=== PATIENT | female | born 1935 | race Caucasian/White ===

== ENCOUNTER → 2016-07-26 | Outpatient (CLI) | payer MEDICARE, OTHER ==
[~2016-07-26] MED LIST: ALBU8.5H3 INH; ASPI-496 PO; HYDR-3138 PO; LOSA50TA6 PO; METO-93 PO; ROSU5TAB PO
== END | disposition home or self-care (01) ==
LOC: CFH 07:44
PROVIDERS: ATTEND Internal Medicine
DX: Z13.820 Encounter for screening for osteoporosis (principal); M81.0 Age-related osteoporosis without current pathological fracture; N95.1 Menopausal and female climacteric states; M89.8X0 Other specified disorders of bone, multiple sites
CPT/HCPCS: 77080

== ENCOUNTER → 2017-01-15 | Outpatient (CLI) | payer MEDICARE, OTHER ==
[~2017-01-15] MED LIST changes: -ALBU8.5H3 INH; +ALBU8.5H8 INH; -HYDR-3138 PO; +HYDR-3237 PO
== END | disposition home or self-care (01) ==
LOC: CFH 06:43
PROVIDERS: ATTEND Internal Medicine Cardiovascular Disease
DX: I08.3 Combined rheumatic disorders of mitral, aortic and tricuspid valves (principal); I10 Essential (primary) hypertension; E78.5 Hyperlipidemia, unspecified
CPT/HCPCS: 93306

== ENCOUNTER → 2017-01-16 | Outpatient (CLI) | payer MEDICARE, OTHER ==
[2017-01-16 12:55] LABS: BLOOD UREA NITROGEN 24 mg/dL (7-18)
[2017-01-16 12:59] LABS: ASPARTATE AMINO TRANSFERASE 22 U/L (15-37)
== END | disposition home or self-care (01) ==
LOC: CFH 07:02
PROVIDERS: ATTEND Internal Medicine Cardiovascular Disease
DX: I10 Essential (primary) hypertension (principal); E78.00 Pure hypercholesterolemia, unspecified
CPT/HCPCS: 36415; 80053; 80061

== ENCOUNTER 2017-11-02 19:36 | Emergency (ER) | payer MEDICARE, OTHER ==
[~2017-11-02] VITALS: Ht 162.6 cm; Wt 81.8 kg
[~2017-11-02 19:36] MED LIST changes: +MULTIVITAMIN; +OMEG-14 PO; +OMEP-110 PO; +VITAMIN D; +[UNRECOGNIZED DRUG - OTHER]
[2017-11-02] MEDS ORDERED: ONDANSETRON ODT 4 MG PO ONE (20:00)
[2017-11-02] MEDS ORDERED: ONDANSETRON ODT 4 MG ONE (20:03)
[2017-11-02] MEDS ORDERED: MECLIZINE CHEWABLE 25 MG TAB ONE (20:58)
[2017-11-02] MEDS ORDERED: MECLIZINE CHEWABLE 25 MG TAB PO ONE (21:00)
[2017-11-02 21:30] VITALS: BP 157/68
== END 2017-11-02 21:32 | disposition home or self-care (01) ==
LOC: ED 21:26
DX: S06.310A Contusion and laceration of right cerebrum without loss of consciousness, initial encounter (principal); R11.0 Nausea; I48.91 Unspecified atrial fibrillation; I11.0 Hypertensive heart disease with heart failure; I50.9 Heart failure, unspecified; W01.0XXA Fall on same level from slipping, tripping and stumbling without subsequent striking against object, initial encounter; Y93.89 Activity, other specified; Y99.8 Other external cause status; Y92.009 Unspecified place in unspecified non-institutional (private) residence as the place of occurrence of the external cause
CPT/HCPCS: 70450; 72125; 93005; 99284; Q0162

== ENCOUNTER → 2017-11-28 | Outpatient (CLI) | payer MEDICARE, OTHER | END | disposition home or self-care (01) | LOC: CVU 12:37 → EDSTATUS 13:00 | PROVIDERS: ATTEND Internal Medicine Cardiovascular Disease | DX: I08.1 Rheumatic disorders of both mitral and tricuspid valves (principal); Z95.2 Presence of prosthetic heart valve; I11.9 Hypertensive heart disease without heart failure; I87.2 Venous insufficiency (chronic) (peripheral); I71.2 Thoracic aortic aneurysm, without rupture | CPT/HCPCS: 93306 ==

== ENCOUNTER 2018-03-16 13:39 | Day surgery (SDC) | payer MEDICARE, OTHER ==
[~2018-03-16] VITALS: Ht 162.6 cm; Wt 88.6 kg
[~2018-03-16 13:39] MED LIST changes: -LOSA50TA6 PO; +LOSA50TA7 PO
[2018-03-16 14:12] VITALS: BP 189/91
[2018-03-16] MEDS ORDERED: LIDOCAINE-MPF 1%, 5ML ONE (15:08)
== END 2018-03-16 16:22 | disposition home or self-care (01) ==
LOC: CACL 13:39
PROVIDERS: ATTEND Internal Medicine Cardiovascular Disease
DX: I83.12 Varicose veins of left lower extremity with inflammation (principal); I11.0 Hypertensive heart disease with heart failure; I50.9 Heart failure, unspecified; J44.9 Chronic obstructive pulmonary disease, unspecified; I48.0 Paroxysmal atrial fibrillation; E78.2 Mixed hyperlipidemia; G43.909 Migraine, unspecified, not intractable, without status migrainosus; Z79.82 Long term (current) use of aspirin; Z79.899 Other long term (current) drug therapy; Z88.1 Allergy status to other antibiotic agents; Z88.8 Allergy status to other drugs, medicaments and biological substances; Z98.890 Other specified postprocedural states
CPT/HCPCS: 36482; C1894

== ENCOUNTER → 2018-03-18 | Outpatient (CLI) | payer MEDICARE, OTHER | END | disposition home or self-care (01) | LOC: CVU 08:00 | PROVIDERS: ATTEND Internal Medicine Cardiovascular Disease | DX: I87.2 Venous insufficiency (chronic) (peripheral) (principal); I50.9 Heart failure, unspecified | CPT/HCPCS: 93971 ==

== ENCOUNTER → 2018-04-02 | Outpatient (CLI) | payer MEDICARE, OTHER ==
[~2018-04-02] MED LIST changes: +FENTANYL PF 100 MCG/2ML ONE; +FLUMAZENIL 0.1 MG/1 ML, 5ML ONE; +GADOBUTROL 10 MMOL/10 ML PFS ONE; +MIDAZOLAM 1 MG/ML, 5ML ONE; +NALOXONE 1 MG/ML, 2ML ONE
== END | disposition home or self-care (01) ==
LOC: RAD 08:20
PROVIDERS: ATTEND Registered Nurse
DX: G43.109 Migraine with aura, not intractable, without status migrainosus (principal)
CPT/HCPCS: 70553; 99156; 99157; A9585; J2250; J3010; J2310

== ENCOUNTER → 2018-05-01 | Outpatient (CLI) | payer MEDICARE, OTHER ==
[~2018-05-01] MED LIST changes: -FENTANYL PF 100 MCG/2ML ONE; -FLUMAZENIL 0.1 MG/1 ML, 5ML ONE; -GADOBUTROL 10 MMOL/10 ML PFS ONE; -MIDAZOLAM 1 MG/ML, 5ML ONE; -NALOXONE 1 MG/ML, 2ML ONE
== END | disposition home or self-care (01) ==
LOC: CFH 07:22
PROVIDERS: ATTEND Internal Medicine
DX: I11.0 Hypertensive heart disease with heart failure (principal); I50.9 Heart failure, unspecified; I27.20 Pulmonary hypertension, unspecified; J44.9 Chronic obstructive pulmonary disease, unspecified; R05 Cough; K44.9 Diaphragmatic hernia without obstruction or gangrene; I77.810 Thoracic aortic ectasia; M85.88 Other specified disorders of bone density and structure, other site; M47.894 Other spondylosis, thoracic region
CPT/HCPCS: 71046

== ENCOUNTER 2018-07-16 10:33 | Day surgery (SDC) | payer MEDICARE, OTHER ==
[~2018-07-16 10:33] MED LIST changes: +LOSA50TA14 PO; -LOSA50TA7 PO
[2018-07-16] MEDS ORDERED: LIDOCAINE 2%, 20ML ONE (11:50)
== END 2018-07-16 12:22 | disposition home or self-care (01) ==
LOC: CACL 10:33
PROVIDERS: ATTEND Internal Medicine Cardiovascular Disease
DX: Z45.09 Encounter for adjustment and management of other cardiac device (principal); I48.91 Unspecified atrial fibrillation; I11.0 Hypertensive heart disease with heart failure; I50.30 Unspecified diastolic (congestive) heart failure; E78.00 Pure hypercholesterolemia, unspecified; I35.0 Nonrheumatic aortic (valve) stenosis; J45.909 Unspecified asthma, uncomplicated; Z98.890 Other specified postprocedural states; Z79.82 Long term (current) use of aspirin; Z95.2 Presence of prosthetic heart valve
CPT/HCPCS: 33285; C1764; J3490

== ENCOUNTER 2018-07-18 17:51 | Emergency (ER) | payer MEDICARE, OTHER ==
[~2018-07-18] VITALS: Ht 162.6 cm; Wt 89.5 kg
[2018-07-18 18:47] LABS: BASOPHILS # (AUTO) 0.02 x10^3/uL (0-0.1); BASOPHILS % (AUTO) 0 % (0-1); EOSINOPHILS # (AUTO) 0.29 x10^3/uL (0-0.4); EOSINOPHILS % (AUTO) 4 % (1-7); LYMPHOCYTES # (AUTO) 1.85 x10^3/uL (1-3.4); LYMPHOCYTES % (AUTO) 25 % (22-44); MD NO; MEAN CORPUSCULAR HEMOGLOBIN 31.5 pg (27.0-34.8); MEAN CORPUSCULAR VOLUME 92.7 fL (80-100); MEAN PLATELET VOLUME 8.1 fL (7.4-10.4); MONOCYTES # (AUTO) 0.54 x10^3/uL (0.2-0.8); MONOCYTES % (AUTO) 7 % (2-9); NEUTROPHILS # (AUTO) 4.61 x10^3/uL (1.8-6.8); NEUTROPHILS % (AUTO) 63 % (42-75); PLATELET COUNT 198 x10^3/uL (130-400); RED BLOOD COUNT 4.38 x10^6/uL (3.82-5.3); RED CELL DISTRIBUTION WIDTH 14.8 % (9.6-15.2)
[2018-07-18 18:53] LABS: ALANINE AMINOTRANSFERASE 28 U/L (12-78); ALBUMIN 3.6 g/dL (3.4-5.0); ANION GAP 3 mmol/L (5-15); CALCIUM 8.5 mg/dL (8.5-10.1); CHLORIDE 109 mmol/L (98-107); CREATININE 0.95 mg/dL (0.55-1.02)
[2018-07-18 18:57] LABS: ALKALINE PHOSPHATASE 78 U/L (45-117); BILIRUBIN,TOTAL 0.6 mg/dL (0.2-1.0); TOTAL PROTEIN 6.7 g/dL (6.4-8.2); TROPONIN I < 0.015 ng/mL (0.000-0.045)
[2018-07-18 20:20] VITALS: BP 153/57
== END 2018-07-18 20:22 | disposition home or self-care (01) ==
LOC: ED 20:00
DX: S20.212A Contusion of left front wall of thorax, initial encounter (principal); I48.91 Unspecified atrial fibrillation; I25.10 Atherosclerotic heart disease of native coronary artery without angina pectoris; I38 Endocarditis, valve unspecified; I50.9 Heart failure, unspecified; X58.XXXA Exposure to other specified factors, initial encounter; Y93.89 Activity, other specified; Y92.89 Other specified places as the place of occurrence of the external cause; Y99.8 Other external cause status
CPT/HCPCS: 36415; 71045; 80053; 83880; 84484; 85025; 93005; 99284

== ENCOUNTER → 2018-08-12 | Outpatient (CLI) | payer MEDICARE, OTHER | END | disposition home or self-care (01) | LOC: CFH 08:41 | PROVIDERS: ATTEND Internal Medicine | DX: M85.88 Other specified disorders of bone density and structure, other site (principal) | CPT/HCPCS: 77080 ==

== ENCOUNTER → 2018-09-14 | Outpatient (CLI) | payer MEDICARE, OTHER ==
[2018-09-14 13:33] LABS: BASOPHILS # (AUTO) 0.02 x10^3/uL (0-0.1); BASOPHILS % (AUTO) 0 % (0-1); EOSINOPHILS # (AUTO) 0.32 x10^3/uL (0-0.4); EOSINOPHILS % (AUTO) 4 % (1-7); LYMPHOCYTES # (AUTO) 1.39 x10^3/uL (1-3.4); LYMPHOCYTES % (AUTO) 19 % (22-44); MD NO; MEAN CORPUSCULAR HEMOGLOBIN 31.5 pg (27.0-34.8); MEAN CORPUSCULAR VOLUME 95.6 fL (80-100); MEAN PLATELET VOLUME 8.8 fL (7.4-10.4); MONOCYTES # (AUTO) 0.52 x10^3/uL (0.2-0.8); MONOCYTES % (AUTO) 7 % (2-9); NEUTROPHILS # (AUTO) 5.23 x10^3/uL (1.8-6.8); NEUTROPHILS % (AUTO) 70 % (42-75); PLATELET COUNT 192 x10^3/uL (130-400); RED CELL DISTRIBUTION WIDTH 13.6 % (9.6-15.2)
[2018-09-14 14:01] LABS: ALBUMIN 4.1 g/dL (3.4-5.0); CALCIUM 10.3 mg/dL (8.5-10.1); CHLORIDE 106 mmol/L (98-107)
[2018-09-14 14:09] LABS: ALANINE AMINOTRANSFERASE 34 U/L (12-78); ALKALINE PHOSPHATASE 76 U/L (45-117); ANION GAP 4 mmol/L (5-15); BILIRUBIN,TOTAL 1.2 mg/dL (0.2-1.0); CHOL/HDL RATIO 2.8; CHOLESTEROL, TOTAL 134 mg/dL (140-239); CREATININE 0.82 mg/dL (0.55-1.02); HDL CHOL % 36 % (28-40); HDL CHOLESTEROL (DIRECT) 48 mg/dL (40-60); LDL CHOLESTEROL,CALCULATED 67 mg/dL (54-169); LDL/HDL RATIO 1.4 (0.5-3.0); TOTAL PROTEIN 7.5 g/dL (6.4-8.2); TRIGLYCERIDES 93 mg/dL (50-200); VLDL CHOLESTEROL 19 mg/dL (0-25)
== END | disposition home or self-care (01) ==
LOC: CFH 07:47
PROVIDERS: ATTEND Internal Medicine Cardiovascular Disease
DX: E78.00 Pure hypercholesterolemia, unspecified (principal); I10 Essential (primary) hypertension; R73.01 Impaired fasting glucose; I27.20 Pulmonary hypertension, unspecified
CPT/HCPCS: 36415; 80053; 80061; 85025

== ENCOUNTER 2018-11-13 07:39 | Outpatient (CLI) | payer MEDICARE, OTHER ==
[2018-11-13 08:55] LABS: BASOPHILS # (AUTO) 0.03 x10^3/uL (0-0.1); BASOPHILS % (AUTO) 1 % (0-1); EOSINOPHILS # (AUTO) 0.31 x10^3/uL (0-0.4); EOSINOPHILS % (AUTO) 5 % (1-7); LYMPHOCYTES # (AUTO) 1.39 x10^3/uL (1-3.4); LYMPHOCYTES % (AUTO) 21 % (22-44); MD NO; MEAN CORPUSCULAR HEMOGLOBIN 30.4 pg (27.0-34.8); MEAN CORPUSCULAR HGB CONC 32.5 g/dL (32.4-35.8); MEAN CORPUSCULAR VOLUME 93.6 fL (80-100); MEAN PLATELET VOLUME 8.3 fL (7.4-10.4); MONOCYTES # (AUTO) 0.54 x10^3/uL (0.2-0.8); MONOCYTES % (AUTO) 8 % (2-9); NEUTROPHILS # (AUTO) 4.23 x10^3/uL (1.8-6.8); NEUTROPHILS % (AUTO) 65 % (42-75); PLATELET COUNT 202 x10^3/uL (130-400); RED BLOOD COUNT 4.82 x10^6/uL (3.82-5.3); RED CELL DISTRIBUTION WIDTH 13.5 % (9.6-15.2)
[2018-11-13 09:04] LABS: ANION GAP 5 mmol/L (5-15); CALCIUM 9.3 mg/dL (8.5-10.1); CHLORIDE 108 mmol/L (98-107)
[2018-11-13 09:08] LABS: ALANINE AMINOTRANSFERASE 28 U/L (12-78); ALKALINE PHOSPHATASE 72 U/L (45-117); BILIRUBIN,TOTAL 0.7 mg/dL (0.2-1.0); CHOLESTEROL, TOTAL 214 mg/dL (140-239); CREATININE 0.96 mg/dL (0.55-1.02); HDL CHOL % 25 % (28-40); HDL CHOLESTEROL (DIRECT) 53 mg/dL (40-60); LDL CHOLESTEROL,CALCULATED 135 mg/dL (54-169); LDL/HDL RATIO 2.5 (0.5-3.0); TOTAL PROTEIN 7.5 g/dL (6.4-8.2); TRIGLYCERIDES 130 mg/dL (50-200); VLDL CHOLESTEROL 26 mg/dL (0-25)
[2018-11-13 09:10] LABS: HEMOGLOBIN A1C 5.7 % (4.2-6.3)
== END 2018-11-13 23:59 | disposition home or self-care (01) ==
LOC: CFH 07:39
PROVIDERS: ATTEND Internal Medicine
DX: I11.0 Hypertensive heart disease with heart failure (principal); E83.52 Hypercalcemia; I48.0 Paroxysmal atrial fibrillation; I50.32 Chronic diastolic (congestive) heart failure; J44.9 Chronic obstructive pulmonary disease, unspecified; R73.01 Impaired fasting glucose
CPT/HCPCS: 36415; 80053; 80061; 82330; 83036; 83970; 85025

== ENCOUNTER 2018-11-23 09:41 | Outpatient (CLI) | payer MEDICARE, OTHER | END 2018-11-23 23:59 | disposition home or self-care (01) | LOC: CFH 09:41 | PROVIDERS: ATTEND Internal Medicine Cardiovascular Disease | DX: I08.1 Rheumatic disorders of both mitral and tricuspid valves (principal); I10 Essential (primary) hypertension; G47.30 Sleep apnea, unspecified | CPT/HCPCS: 93306 ==

== ENCOUNTER → 2019-03-19 | Outpatient (CLI) | payer MEDICARE, OTHER ==
[2019-03-19 13:20] LABS: ALANINE AMINOTRANSFERASE 32 U/L (12-78); ALBUMIN 3.7 g/dL (3.4-5.0); ANION GAP 4 mmol/L (5-15); CALCIUM 9.2 mg/dL (8.5-10.1); CHLORIDE 108 mmol/L (98-107); CREATININE 0.74 mg/dL (0.55-1.02)
[2019-03-19 13:22] LABS: ALKALINE PHOSPHATASE 71 U/L (45-117); BILIRUBIN,TOTAL 0.9 mg/dL (0.2-1.0); TOTAL PROTEIN 7.2 g/dL (6.4-8.2)
== END | disposition home or self-care (01) ==
LOC: CFH 07:34
PROVIDERS: ATTEND Internal Medicine
DX: M81.0 Age-related osteoporosis without current pathological fracture (principal); I50.9 Heart failure, unspecified
CPT/HCPCS: 36415; 80053

== ENCOUNTER 2019-04-28 04:13 | Emergency (ER) | payer MEDICARE, OTHER ==
[~2019-04-28] VITALS: Ht 162.6 cm; Wt 84.7 kg
[2019-04-28 04:16] VITALS: BP 208/95
== END 2019-04-28 05:26 | disposition home or self-care (01) ==
LOC: ED 05:05
DX: K02.9 Dental caries, unspecified (principal); I11.0 Hypertensive heart disease with heart failure; I48.91 Unspecified atrial fibrillation; I25.10 Atherosclerotic heart disease of native coronary artery without angina pectoris
CPT/HCPCS: 93005; 99283

== ENCOUNTER 2019-04-29 05:54 | Emergency (ER) | payer MEDICARE, OTHER ==
[~2019-04-29] VITALS: Ht 162.6 cm; Wt 84.0 kg
--- NOTE | 2019-04-29 06:15 | NUR ---
Pt presents to ed c/o facial swelling and seen here recently. Started abx yesterday morning and swelling getting worse. "i can barely swallow my antibiotics. Able to tolerate own secretions and po intake. Moderate swelling noted to R side of face. Md aware. No acute signs of respiratory distress noted.
--- NOTE | 2019-04-29 06:25 | NUR ---
at bedside for assessment.
[2019-04-29] MEDS ORDERED: SODIUM CHLORIDE FLUSH 10ML SYR IVF ONE (06:30)
[2019-04-29 06:50] LABS: BASOPHILS % (AUTO) 0 % (0-1); EOSINOPHILS # (AUTO) 0.17 x10^3/uL (0-0.4); EOSINOPHILS % (AUTO) 2 % (1-7); LYMPHOCYTES # (AUTO) 0.88 x10^3/uL (1-3.4); LYMPHOCYTES % (AUTO) 8 % (22-44); MD NO; MEAN CORPUSCULAR HEMOGLOBIN 30.6 pg (27.0-34.8); MEAN CORPUSCULAR HGB CONC 33.6 g/dL (32.4-35.8); MEAN CORPUSCULAR VOLUME 91.3 fL (80-100); MEAN PLATELET VOLUME 7.9 fL (7.4-10.4); MONOCYTES # (AUTO) 0.54 x10^3/uL (0.2-0.8); MONOCYTES % (AUTO) 5 % (2-9); NEUTROPHILS % (AUTO) 85 % (42-75); PLATELET COUNT 180 x10^3/uL (130-400); RED BLOOD COUNT 4.95 x10^6/uL (3.82-5.3); RED CELL DISTRIBUTION WIDTH 13.5 % (9.6-15.2)
--- NOTE | 2019-04-29 06:54 | NUR ---
Pt bedside report to Katelynn alexandre.
--- NOTE | 2019-04-29 06:57 | NUR ---
Bedside report from Trevon RN, pt care assumed at this time. Pt in bed, no needs at this time, awaiting lab results & CT scan. WCTM.
[2019-04-29 07:03] LABS: ALBUMIN 3.6 g/dL (3.4-5.0); ANION GAP 6 mmol/L (5-15); CALCIUM 8.7 mg/dL (8.5-10.1); CHLORIDE 106 mmol/L (98-107)
--- NOTE | 2019-04-29 07:37 | NUR ---
Pt returning from CT in NAD
[2019-04-29] MEDS ORDERED: OMNIPAQUE 350 MG/ML, 75ML BOTTLE ONE (07:48)
[2019-04-29] MEDS ORDERED: MORPHINE SULFATE 4 MG/ML, 1ML ONE (07:57)
[2019-04-29] MEDS ORDERED: ONDANSETRON 2MG/ML, 2ML ONE (07:57)
[2019-04-29] MEDS ORDERED: ONDANSETRON 2MG/ML, 2ML IVPush ONE (08:00)
[2019-04-29] MEDS ORDERED: MORPHINE SULFATE 4 MG/ML, 1ML IVPush ONE (08:00)
[2019-04-29] MEDS ORDERED: AMPICILLIN/SULBACTAM 3 GM in SODIUM CHLORIDE 0.9% 100 ML IV ONE (08:00)
[2019-04-29 09:07] VITALS: BP 151/87
== END 2019-04-29 09:19 | disposition home or self-care (01) ==
LOC: ED 09:15
DX: K02.9 Dental caries, unspecified (principal); I50.9 Heart failure, unspecified; I25.10 Atherosclerotic heart disease of native coronary artery without angina pectoris; I48.91 Unspecified atrial fibrillation
CPT/HCPCS: 36415; 70487; 80048; 82040; 85025; 96365; 96375; 99284; J0295; J2270; J2405; Q9967

== ENCOUNTER 2019-05-08 18:45 | Emergency (ER) | payer MEDICARE, OTHER ==
[~2019-05-08] VITALS: Ht 162.6 cm; Wt 85.0 kg
--- NOTE | 2019-05-08 19:12 | NUR ---
THIS IS AN 83Y F THAT COMES IN FOR CHEST TIGHNESS AND SHORTNESS OF BREATH STARTING 1.5HRS AGO. PT WAS SLEEPING AND WAS WOKEN UP BY CHEST PRESSURE. PT CONNECTED TO ALL MONITORING. CALL LIGHT IN REACH
--- NOTE | 2019-05-08 19:12 | NUR ---
PA AT BEDSIDE TO ASSESS PT
[2019-05-08 19:14] VITALS: BP 125/85
[2019-05-08] MEDS ORDERED: ASPIRIN 81 MG TABLET CHEW ONE (19:16)
--- NOTE | 2019-05-08 19:18 | NUR ---
PT MEDICATED PER JUN, XRAY AT BEDSIDE
[2019-05-08 19:27] LABS: BASOPHILS # (AUTO) 0.08 x10^3/uL (0-0.1); BASOPHILS % (AUTO) 1 % (0-1); EOSINOPHILS # (AUTO) 0.26 x10^3/uL (0-0.4); EOSINOPHILS % (AUTO) 3 % (1-7); LYMPHOCYTES # (AUTO) 2.11 x10^3/uL (1-3.4); LYMPHOCYTES % (AUTO) 27 % (22-44); MD NO; MEAN CORPUSCULAR HEMOGLOBIN 30.6 pg (27.0-34.8); MEAN CORPUSCULAR HGB CONC 33.6 g/dL (32.4-35.8); MEAN PLATELET VOLUME 8.1 fL (7.4-10.4); MONOCYTES % (AUTO) 9 % (2-9); NEUTROPHILS # (AUTO) 4.66 x10^3/uL (1.8-6.8); NEUTROPHILS % (AUTO) 60 % (42-75); PLATELET COUNT 280 x10^3/uL (130-400); RED BLOOD COUNT 4.64 x10^6/uL (3.82-5.3); RED CELL DISTRIBUTION WIDTH 13.3 % (9.6-15.2)
[2019-05-08] MEDS ORDERED: ASPIRIN 81 MG TABLET CHEW PO ONE (19:30)
[2019-05-08] MEDS ORDERED: SODIUM CHLORIDE FLUSH 10ML SYR IVF ONE (19:30)
[2019-05-08 19:37] LABS: ALANINE AMINOTRANSFERASE 28 U/L (12-78); ALBUMIN 3.5 g/dL (3.4-5.0); ANION GAP 11 mmol/L (5-15); CALCIUM 9.3 mg/dL (8.5-10.1); CHLORIDE 110 mmol/L (98-107); CREATININE 0.84 mg/dL (0.55-1.02)
[2019-05-08] MEDS ORDERED: DILTIAZEM 5 MG/ML, 5ML ONE (19:38)
[2019-05-08 19:42] LABS: ALKALINE PHOSPHATASE 84 U/L (45-117); BILIRUBIN,TOTAL 0.6 mg/dL (0.2-1.0); TROPONIN I < 0.015 ng/mL (0.000-0.045)
--- NOTE | 2019-05-08 19:45 | NUR ---
HR UP TO 140, UPDATED ADDITIONAL ORDER RECIEVED. PT MEDICATED PER MAR. HR DOWN TO 98.
[2019-05-08] MEDS ORDERED: ETOMIDATE 20 MG/10 ML ONE (19:51)
--- NOTE | 2019-05-08 19:58 | NUR ---
AT BEDSIDE FOR CARDIOVERSION
[2019-05-08] MEDS ORDERED: DILTIAZEM 5 MG/ML, 5ML IVPush ONE (20:00)
== END 2019-05-08 21:19 | disposition home or self-care (01) ==
LOC: ED 20:28
DX: I48.91 Unspecified atrial fibrillation (principal); I25.10 Atherosclerotic heart disease of native coronary artery without angina pectoris; I11.0 Hypertensive heart disease with heart failure; I50.9 Heart failure, unspecified; I25.2 Old myocardial infarction
CPT/HCPCS: 36415; 71045; 80053; 83735; 83880; 84484; 85025; 93005; 96374; 99284

== ENCOUNTER → 2019-10-15 | Outpatient (CLI) | payer MEDICARE, OTHER ==
[2019-10-15 13:15] LABS: BASOPHILS # (AUTO) 0.03 x10^3/uL (0-0.1); BASOPHILS % (AUTO) 1 % (0-1); EOSINOPHILS % (AUTO) 4 % (1-7); LYMPHOCYTES # (AUTO) 1.43 x10^3/uL (1-3.4); LYMPHOCYTES % (AUTO) 27 % (22-44); MD NO; MEAN CORPUSCULAR HEMOGLOBIN 30.7 pg (27.0-34.8); MEAN CORPUSCULAR HGB CONC 33.1 g/dL (32.4-35.8); MEAN CORPUSCULAR VOLUME 92.9 fL (80-100); MONOCYTES # (AUTO) 0.52 x10^3/uL (0.2-0.8); MONOCYTES % (AUTO) 10 % (2-9); NEUTROPHILS # (AUTO) 3.17 x10^3/uL (1.8-6.8); NEUTROPHILS % (AUTO) 59 % (42-75); PLATELET COUNT 159 x10^3/uL (130-400); RED CELL DISTRIBUTION WIDTH 13.9 % (9.6-15.2)
[2019-10-15 13:39] LABS: CHLORIDE 109 mmol/L (98-107)
[2019-10-15 13:45] LABS: ALANINE AMINOTRANSFERASE 26 U/L (12-78); ALBUMIN 3.6 g/dL (3.4-5.0); ALKALINE PHOSPHATASE 62 U/L (45-117); ANION GAP 5 mmol/L (5-15); BILIRUBIN,TOTAL 1.2 mg/dL (0.2-1.0); CHOL/HDL RATIO 2.5; CHOLESTEROL, TOTAL 117 mg/dL (140-239); CREATININE 0.88 mg/dL (0.55-1.02); HDL CHOL % 40 % (28-40); HDL CHOLESTEROL (DIRECT) 47 mg/dL (40-60); LDL CHOLESTEROL,CALCULATED 55 mg/dL (54-169); LDL/HDL RATIO 1.2 (0.5-3.0); TOTAL PROTEIN 6.8 g/dL (6.4-8.2); TRIGLYCERIDES 76 mg/dL (50-200); VLDL CHOLESTEROL 15 mg/dL (0-25)
== END | disposition home or self-care (01) ==
LOC: CFH 07:27
PROVIDERS: ATTEND Internal Medicine Cardiovascular Disease
DX: I11.0 Hypertensive heart disease with heart failure (principal); I50.32 Chronic diastolic (congestive) heart failure; I48.91 Unspecified atrial fibrillation; E78.00 Pure hypercholesterolemia, unspecified; I35.0 Nonrheumatic aortic (valve) stenosis; I71.2 Thoracic aortic aneurysm, without rupture; I87.2 Venous insufficiency (chronic) (peripheral); R00.2 Palpitations; R07.2 Precordial pain
CPT/HCPCS: 36415; 80053; 80061; 85025

== ENCOUNTER 2019-10-21 11:47 | Emergency (ER) | payer MEDICARE, OTHER ==
[~2019-10-21] VITALS: Ht 162.6 cm; Wt 83.1 kg
--- NOTE | 2019-10-21 12:19 | NUR ---
GENERALIZED WEAKNESS X 1 MONTH. VEERING SIDEWAYS TODAY WHEN AMBULATING. CARDS=KEDIA. SAW KEMAXINEA ON FRIDAY. HAS HAD BRADYCARDIA LATELY (hr in the 30's) AND REDUCED METOPROLOL IN HALF starting yesterday (10/20/19) ECG obtained in room VSS see following note for in depth strokew eval
--- NOTE | 2019-10-21 12:20 | NUR ---
UPON WAKING (530AM) LUE/LLE WEAKNESS/DEMINISHED SENSATION AND LEANING TO THE LEFT WITH WALKING PROVIDER TO BEDSIDE TO CT HEAD W/O IMMEDIATELY WITHOUT CALLING CODE NEURO (MORE THAN 3HOURS AGO) PIV PLACED FROM WHICH LABS WERE DRAWN AND FSBS CHECKED (84) Hr 56, 138/[address] scan at 1223
[2019-10-21] MEDS ORDERED: FLUT1BLS INH (12:41)
[2019-10-21] MEDS ORDERED: FLUT16SP24 INH (12:41)
[2019-10-21] MEDS ORDERED: PANT40TA5 PO (12:41)
[2019-10-21 13:00] LABS: BASOPHILS # (AUTO) 0.06 x10^3/uL (0-0.1); BASOPHILS % (AUTO) 1 % (0-1); EOSINOPHILS # (AUTO) 0.23 x10^3/uL (0-0.4); EOSINOPHILS % (AUTO) 3 % (1-7); LYMPHOCYTES # (AUTO) 1.76 x10^3/uL (1-3.4); LYMPHOCYTES % (AUTO) 25 % (22-44); MD NO; MEAN CORPUSCULAR HEMOGLOBIN 30.7 pg (27.0-34.8); MEAN CORPUSCULAR HGB CONC 33.4 g/dL (32.4-35.8); MEAN CORPUSCULAR VOLUME 91.8 fL (80-100); MEAN PLATELET VOLUME 8.8 fL (7.4-10.4); MONOCYTES # (AUTO) 0.55 x10^3/uL (0.2-0.8); MONOCYTES % (AUTO) 8 % (2-9); NEUTROPHILS # (AUTO) 4.55 x10^3/uL (1.8-6.8); NEUTROPHILS % (AUTO) 64 % (42-75); PLATELET COUNT 173 x10^3/uL (130-400); RED BLOOD COUNT 4.64 x10^6/uL (3.82-5.3)
[2019-10-21 13:11] LABS: ALANINE AMINOTRANSFERASE 32 U/L (12-78); ANION GAP 7 mmol/L (5-15); CALCIUM 9.4 mg/dL (8.5-10.1); CHLORIDE 106 mmol/L (98-107); CREATININE 0.91 mg/dL (0.55-1.02)
--- NOTE | 2019-10-21 13:13 | NUR ---
CT HEAD RESULTS REVIEWED WITH PROVIDER PATIENT REMAINS WITH LEFT SIDED SLIGHT SENSATION LOSS AND "FEELING OF LEFT SIDED LEAN WITH WALKING." VSS ON HYDRAULIC MODELING ENGINEER DYSPHAGIA SWALLOW SCREEN PASSED
[2019-10-21 13:15] LABS: ALKALINE PHOSPHATASE 64 U/L (45-117); BILIRUBIN,TOTAL 1.2 mg/dL (0.2-1.0); TOTAL PROTEIN 7.1 g/dL (6.4-8.2); TROPONIN I < 0.015 ng/mL (0.000-0.045)
[2019-10-21 13:26] LABS: FREE T4 (FREE THYROXINE) 1.13 ng/dL (0.76-1.46)
--- NOTE | 2019-10-21 13:37 | NUR ---
Up to commode to void-still very weak/dizzy (denies vertigo like sxs) VSS Ua sent
[2019-10-21 13:55] LABS: MICROSCOPIC AUTO
[2019-10-21] MEDS ORDERED: MECLIZINE CHEWABLE 25 MG TAB PO ONE (14:00)
--- NOTE | 2019-10-21 14:23 | NUR ---
REFUSED ANTIVERT. PROVIDER TO BEDSIDE TO REVIEW POC
--- NOTE | 2019-10-21 14:49 | NUR ---
REPORT RECEIVED FROM TIM CASEY. PLAN OF CARE DISCUSSED. ALL RESULTS BACK, PATIENT UP FOR RECHECK
--- NOTE | 2019-10-21 14:51 | NUR ---
REPORT TO HARISH DUMONT MEAL TRAY ORDERED
[2019-10-21 15:03] VITALS: BP 137/61
--- NOTE | 2019-10-21 15:23 | NUR ---
PATIENT AMBULATORY IN [place] WITH STEADY GAIT. MD CARA AWARE.
--- NOTE | 2019-10-21 16:11 | NUR ---
Patient given discharge instructions and they have confirmed that they understand the instructions. Patient ambulatory with steady gait.
== END 2019-10-21 16:13 | disposition home or self-care (01) ==
LOC: ED 14:19
DX: R53.1 Weakness (principal); R00.1 Bradycardia, unspecified; I11.0 Hypertensive heart disease with heart failure; I50.9 Heart failure, unspecified; I25.10 Atherosclerotic heart disease of native coronary artery without angina pectoris; I48.91 Unspecified atrial fibrillation; Z95.4 Presence of other heart-valve replacement
CPT/HCPCS: 70450; 71045; 80053; 81001; 82962; 84439; 84443; 84484; 85025; 87086; 93005; 99285

== ENCOUNTER 2019-11-05 04:26 | Emergency (ER) | payer MEDICARE, OTHER ==
[~2019-11-05] VITALS: Ht 162.6 cm; Wt 82.6 kg
[~2019-11-05 04:26] MED LIST changes: +FLUT16SP24 INH; +FLUT1BLS INH; +PANT40TA6 PO
[2019-11-05 04:44] VITALS: BP 150/84
--- NOTE | 2019-11-05 04:46 | NUR ---
THIS IS A 84Y F THAT COMES IN FOR CP/ PALP STARTING AROUND 0400. PT TOOK HOME MEDS [facility]. PT HAS HX OF AFIB AND STS SHE THINKS SHE IS GOING BACK INTO IT. SHE STS SHE WAS CARDIOVERTED IN APR. PT CONNECTED TO ALL MONITORING, PIV STARTED. PT SPEAKING IN FULL SENTENCES NADN.
[2019-11-05] MEDS ORDERED: DILTIAZEM 5 MG/ML, 5ML ONE (04:49)
--- NOTE | 2019-11-05 04:53 | NUR ---
PT HAS SELF CONVERTED PA AT BEDSIDE FOR REASSESS, PER PA HOLD DILT
[2019-11-05] MEDS ORDERED: DILTIAZEM 5 MG/ML, 5ML IV ONE (05:00)
[2019-11-05 05:19] LABS: BASOPHILS # (AUTO) 0.04 x10^3/uL (0-0.1); BASOPHILS % (AUTO) 1 % (0-1); EOSINOPHILS # (AUTO) 0.31 x10^3/uL (0-0.4); EOSINOPHILS % (AUTO) 4 % (1-7); LYMPHOCYTES # (AUTO) 2.19 x10^3/uL (1-3.4); LYMPHOCYTES % (AUTO) 29 % (22-44); MD NO; MEAN CORPUSCULAR HEMOGLOBIN 30.6 pg (27.0-34.8); MEAN CORPUSCULAR HGB CONC 33.7 g/dL (32.4-35.8); MEAN PLATELET VOLUME 8.5 fL (7.4-10.4); MONOCYTES # (AUTO) 0.68 x10^3/uL (0.2-0.8); MONOCYTES % (AUTO) 9 % (2-9); NEUTROPHILS # (AUTO) 4.31 x10^3/uL (1.8-6.8); NEUTROPHILS % (AUTO) 57 % (42-75); PLATELET COUNT 178 x10^3/uL (130-400); RED BLOOD COUNT 4.68 x10^6/uL (3.82-5.3); RED CELL DISTRIBUTION WIDTH 13.8 % (9.6-15.2)
[2019-11-05 05:22] LABS: ALBUMIN 3.9 g/dL (3.4-5.0); ANION GAP 7 mmol/L (5-15); CALCIUM 9.7 mg/dL (8.5-10.1); CHLORIDE 107 mmol/L (98-107)
[2019-11-05 05:28] LABS: TROPONIN I < 0.015 ng/mL (0.000-0.045)
== END 2019-11-05 06:18 | disposition home or self-care (01) ==
LOC: ED 04:37
DX: I48.0 Paroxysmal atrial fibrillation (principal); R00.2 Palpitations; R07.89 Other chest pain; R00.0 Tachycardia, unspecified; I25.10 Atherosclerotic heart disease of native coronary artery without angina pectoris; I11.0 Hypertensive heart disease with heart failure; I50.9 Heart failure, unspecified
CPT/HCPCS: 36415; 71045; 80048; 82040; 83735; 83880; 84484; 85025; 93005; 99285

== ENCOUNTER → 2019-11-09 | Outpatient (CLI) | payer MEDICARE, OTHER ==
[~2019-11-09] MED LIST changes: +PANT40TA5 PO; -PANT40TA6 PO
== END | disposition home or self-care (01) ==
LOC: CFH 06:39
PROVIDERS: ATTEND Registered Nurse
DX: I08.3 Combined rheumatic disorders of mitral, aortic and tricuspid valves (principal); I10 Essential (primary) hypertension; E78.5 Hyperlipidemia, unspecified
CPT/HCPCS: 93306

== ENCOUNTER 2020-01-27 11:34 | Observation (INO) | payer MEDICARE, OTHER ==
[~2020-01-27] VITALS: Ht 162.6 cm; Wt 86.8 kg
[~2020-01-27 11:34] MED LIST changes: -PANT40TA5 PO; +PANT40TA6 PO
[2020-01-27] MEDS: SODIUM CHLORIDE 0.9% 1,000 ML IV SCH ×2 (12:43→20:43)
[2020-01-27] MEDS ORDERED: PANT40TA6 PO (12:55)
[2020-01-27] MEDS ORDERED: LOSA1TAB12 PO (12:55)
[2020-01-27] MEDS ORDERED: UBID30CA9 PO (12:55)
[2020-01-27] MEDS ORDERED: APIX5TAB PO (12:55)
[2020-01-27] MEDS ORDERED: METO25TA91 PO (12:55)
[2020-01-27] MEDS ORDERED: CEFAZOLIN PMX 1GM/50ML 50 ML IVPB ONE (13:00)
[2020-01-27] MEDS ORDERED: PLEASE ENTER HEIGHT AND WEIGHT MC SCH (13:00)
[2020-01-27 13:15] VITALS: BP 167/77
[2020-01-27 13:31] LABS: BASOPHILS # (AUTO) 0.04 x10^3/uL (0-0.1); BASOPHILS % (AUTO) 1 % (0-1); EOSINOPHILS # (AUTO) 0.25 x10^3/uL (0-0.4); EOSINOPHILS % (AUTO) 3 % (1-7); LYMPHOCYTES # (AUTO) 1.57 x10^3/uL (1-3.4); LYMPHOCYTES % (AUTO) 21 % (22-44); MD NO; MEAN CORPUSCULAR HEMOGLOBIN 30.3 pg (27.0-34.8); MEAN CORPUSCULAR HGB CONC 33.2 g/dL (32.4-35.8); MEAN PLATELET VOLUME 8.2 fL (7.4-10.4); MONOCYTES # (AUTO) 0.38 x10^3/uL (0.2-0.8); MONOCYTES % (AUTO) 5 % (2-9); NEUTROPHILS # (AUTO) 5.27 x10^3/uL (1.8-6.8); NEUTROPHILS % (AUTO) 70 % (42-75); PLATELET COUNT 162 x10^3/uL (130-400); RED BLOOD COUNT 4.48 x10^6/uL (3.82-5.3); RED CELL DISTRIBUTION WIDTH 13.3 % (9.6-15.2)
[2020-01-27 13:41] LABS: ANION GAP 6 mmol/L (5-15); CALCIUM 9.9 mg/dL (8.5-10.1); CHLORIDE 105 mmol/L (98-107)
[2020-01-27] MEDS ORDERED: MIDAZOLAM 1 MG/ML, 5ML ONE (14:07)
[2020-01-27] MEDS ORDERED: FENTANYL PF 100 MCG/2ML ONE (14:07)
[2020-01-27] MEDS ORDERED: CEFAZOLIN 1,000 MG ONE (14:08)
[2020-01-27] MEDS ORDERED: CEFAZOLIN PMX 1GM/50ML 50 ML ONE (14:08)
[2020-01-27] MEDS ORDERED: LIDOCAINE 2%, 20ML ONE (14:08)
[2020-01-27] MEDS ORDERED: LIDOCAINE 1%, 20ML ONE (14:48)
[2020-01-27] MEDS ORDERED: ACETAMINOPHEN 325 MG TABLET PO PRN (16:00)
[2020-01-27] MEDS ORDERED: Hold all anticoagulants for 24 hours MC PRN (16:00)
[2020-01-27] MEDS: HYDROcodone/APAP 5/325 TABLET PO PRN ×2 (16:12→20:36)
[2020-01-27] MEDS: [UNRECOGNIZED DRUG - REMARK] MC SCH (16:14)
[2020-01-27 19:15] VITALS: BP 119/65
[2020-01-27 20:34] VITALS: BP 127/78
[2020-01-27] MEDS: SODIUM CHLORIDE FLUSH 10ML SYR IVF SCH (20:38)
[2020-01-27] MEDS ORDERED: METOPROLOL SUCCINATE 25 MG TAB.ER.24H PO SCH (21:00)
[2020-01-28] MEDS: [UNRECOGNIZED DRUG - REMARK] MC SCH ×2 (00:30→07:24)
[2020-01-28 02:01] VITALS: BP 129/75
[2020-01-28] MEDS: SODIUM CHLORIDE 0.9% 1,000 ML IV SCH (04:43)
[2020-01-28] MEDS ORDERED: ALBUTEROL HFA 90 MCG/SPRAY INH PRN (06:30)
[2020-01-28 07:12] VITALS: BP 151/93
[2020-01-28] MEDS ORDERED: ACET325T26 PO (07:48)
[2020-01-28] MEDS: SODIUM CHLORIDE FLUSH 10ML SYR IVF SCH (08:05)
[2020-01-28] MEDS ORDERED: FLUTICASONE/VILANTEROL 200-25MCG/INH INH SCH (09:00)
[2020-01-28] MEDS ORDERED: PANTOPRAZOLE 40MG TABLET PO SCH ×2 (09:00)
== END 2020-01-28 09:58 | disposition home or self-care (01) ==
LOC: CACL 11:34 → 5SO 16:05 → CACL 19:32 → DCLOUNGE 01-28 09:49
PROVIDERS: ADMIT Internal Medicine Clinical Cardiac Electrophysiology; ATTEND Internal Medicine Clinical Cardiac Electrophysiology
DX: I45.5 Other specified heart block (principal); I49.5 Sick sinus syndrome; I11.0 Hypertensive heart disease with heart failure; I50.32 Chronic diastolic (congestive) heart failure; I06.0 Rheumatic aortic stenosis; E78.00 Pure hypercholesterolemia, unspecified; E78.5 Hyperlipidemia, unspecified; J44.9 Chronic obstructive pulmonary disease, unspecified; I05.2 Rheumatic mitral stenosis with insufficiency; I48.0 Paroxysmal atrial fibrillation; G47.33 Obstructive sleep apnea (adult) (pediatric); M19.90 Unspecified osteoarthritis, unspecified site; Z95.4 Presence of other heart-valve replacement; Z79.899 Other long term (current) drug therapy
CPT/HCPCS: 33208; 33286; 36415; 71045; 80048; 85025; 93005; 94640; 99156; 99157; C1779; C1785; C1892; G0378; J0690; J2250; J3010; J3490

== ENCOUNTER 2020-01-31 12:08 | Emergency (ER) | payer MEDICARE, OTHER ==
[~2020-01-31] VITALS: Ht 162.6 cm; Wt 81.7 kg
[~2020-01-31 12:08] MED LIST changes: +ACET325T26 PO; +APIX5TAB PO; +LOSA1TAB12 PO; +METO25TA91 PO; +UBID30CA9 PO
[2020-01-31 12:16] VITALS: BP 124/70
[2020-01-31] MEDS ORDERED: HYDROcodone/APAP 5/325 TABLET ONE (12:43)
[2020-01-31] MEDS ORDERED: HYDROcodone/APAP 5/325 TABLET PO ONE (13:00)
--- NOTE | 2020-01-31 13:01 | NUR ---
Pt had pacemaker placed last . Pt has developed more moderate pain. Pt reports that her pain is getting worse and she did not get pain meds for home because she refused. Pt given norco 5 here. Pt is not able to lift left arm at this time. Pt reports that she has noticed that the pain localizes to the top of her shoulder. Pt medicated and resting in room.
--- NOTE | 2020-01-31 13:46 | NUR ---
Sling applied and wound care completed to pacemaker incesions.
--- NOTE | 2020-01-31 14:11 | NUR ---
Patient/Caregiver given discharge instructions and they have confirmed that they understand the instructions. Patient ambulatory with steady gait.
== END 2020-01-31 14:13 | disposition home or self-care (01) ==
LOC: ED 13:11
DX: M77.9 Enthesopathy, unspecified (principal); I44.7 Left bundle-branch block, unspecified; I11.0 Hypertensive heart disease with heart failure; I50.9 Heart failure, unspecified; I25.10 Atherosclerotic heart disease of native coronary artery without angina pectoris; I48.91 Unspecified atrial fibrillation
CPT/HCPCS: 93005; 99283

== ENCOUNTER → 2020-05-01 | Outpatient (CLI) | payer MEDICARE, OTHER | END | disposition home or self-care (01) | LOC: CFH 08:16 | PROVIDERS: ATTEND Registered Nurse | DX: I08.8 Other rheumatic multiple valve diseases (principal); I11.9 Hypertensive heart disease without heart failure | CPT/HCPCS: 93306 ==

== ENCOUNTER 2020-06-08 10:03 | Day surgery (SDC) | payer MEDICARE, OTHER ==
[~2020-06-08] VITALS: Ht 162.6 cm; Wt 79.5 kg
[2020-06-08] MEDS ORDERED: PLEASE ENTER HEIGHT AND WEIGHT MC SCH (10:30)
[2020-06-08] MEDS ORDERED: SODIUM CHLORIDE 0.9% 1,000 ML IV SCH (10:30)
[2020-06-08] MEDS ORDERED: METO25TA91 PO (10:36)
[2020-06-08] MEDS ORDERED: LOSA50TA14 PO (10:37)
[2020-06-08] MEDS ORDERED: Magnesium PO (10:39)
[2020-06-08] MEDS ORDERED: CHOL10003 PO (10:39)
[2020-06-08 10:41] VITALS: BP 153/74
[2020-06-08] MEDS ORDERED: PROPOFOL 10 MG/ML, 20ML ONE (11:54)
== END 2020-06-08 13:48 | disposition home or self-care (01) ==
LOC: CACL 10:03
PROVIDERS: ATTEND Internal Medicine Cardiovascular Disease
DX: R06.09 Other forms of dyspnea (principal); I08.1 Rheumatic disorders of both mitral and tricuspid valves; I70.0 Atherosclerosis of aorta; I48.0 Paroxysmal atrial fibrillation; I11.0 Hypertensive heart disease with heart failure; I50.32 Chronic diastolic (congestive) heart failure; E78.5 Hyperlipidemia, unspecified; J44.9 Chronic obstructive pulmonary disease, unspecified; G47.33 Obstructive sleep apnea (adult) (pediatric); Z20.822 Contact with and (suspected) exposure to COVID-19; Z79.01 Long term (current) use of anticoagulants; Z79.899 Other long term (current) drug therapy; Z95.0 Presence of cardiac pacemaker; Z95.2 Presence of prosthetic heart valve
CPT/HCPCS: 87635; 93312; 93321; 93325; J2704

== ENCOUNTER → 2020-06-14 | Outpatient (CLI) | payer MEDICARE, OTHER ==
[~2020-06-14] MED LIST changes: +CHOL10003 PO; +Magnesium PO
== END | disposition home or self-care (01) ==
LOC: CFH 08:29
PROVIDERS: ATTEND Internal Medicine Cardiovascular Disease
DX: R91.1 Solitary pulmonary nodule (principal); J84.10 Pulmonary fibrosis, unspecified; R06.00 Dyspnea, unspecified
CPT/HCPCS: 71250

== ENCOUNTER 2020-06-21 15:02 | Emergency (ER) | payer MEDICARE, OTHER ==
[~2020-06-21] VITALS: Ht 160 cm; Wt 80.0 kg
--- NOTE | 2020-06-21 15:40 | NUR ---
PT C/O LOWER ABD PAIN SINCE A WEEK. PT ALSO HAS HAD DIARRHEA TIMES 2 DAYS. PAIN WORSENS WITH MOVEMENT. PAIN 5/10. 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 PT DENIES N/V, CP, SOB, OR FEVERS.
[2020-06-21 17:39] LABS: MICROSCOPIC NOT IND
[2020-06-21 17:51] LABS: BASOPHILS % (AUTO) 1 % (0-1); EOSINOPHILS % (AUTO) 1 % (1-7); LYMPHOCYTES % (AUTO) 16 % (22-44); MEAN CORPUSCULAR HEMOGLOBIN 29.9 pg (27.0-34.8); MEAN CORPUSCULAR HGB CONC 33.3 g/dL (32.4-35.8); MONOCYTES % (AUTO) 8 % (2-9); NEUTROPHILS % (AUTO) 75 % (42-75); PLATELET COUNT 156 x10^3/uL (130-400); RED CELL DISTRIBUTION WIDTH 13.9 % (9.6-15.2)
[2020-06-21 17:52] LABS: MD NO
[2020-06-21] MEDS ORDERED: SODIUM CHLORIDE FLUSH 10ML SYR IVF ONE (18:00)
[2020-06-21 18:03] LABS: ALANINE AMINOTRANSFERASE 24 U/L (12-78); ALBUMIN 3.7 g/dL (3.4-5.0); ANION GAP 7 mmol/L (5-15); CALCIUM 9.2 mg/dL (8.5-10.1); CHLORIDE 108 mmol/L (98-107)
[2020-06-21 18:05] LABS: ALKALINE PHOSPHATASE 81 U/L (45-117); BILIRUBIN,TOTAL 1.1 mg/dL (0.2-1.0); TOTAL PROTEIN 7.2 g/dL (6.4-8.2)
--- NOTE | 2020-06-21 18:22 | NUR ---
OFF THE FLOOR TO CT
[2020-06-21] MEDS ORDERED: OMNIPAQUE 350 MG/ML, 100ML BOTTLE ONE (18:37)
--- NOTE | 2020-06-21 18:50 | NUR ---
REPORT FROM RICHARD RN, PT CARE TRANSFERRED AT THIS TIME. PT RESTING ON GURNEY, NAD, APPEARS COMFORTABLE, NO CHANGE IN CONDITION, BED IN LOWEST, RAILS ENGAGED, CALL LIGHT ON LAP, WCTM. WAITING FOR CT AND LACTATE
[2020-06-21 18:55] VITALS: BP 158/85
--- NOTE | 2020-06-21 19:49 | NUR ---
Patient given discharge instructions and they have confirmed that they understand the instructions. Patient ambulatory with steady gait. nad, denies additional needs, all questions answered appropriately. no personal belongings left in room after dc
== END 2020-06-21 19:51 | disposition home or self-care (01) ==
LOC: ED 19:45
DX: R10.32 Left lower quadrant pain (principal); R10.31 Right lower quadrant pain; I11.0 Hypertensive heart disease with heart failure; I50.9 Heart failure, unspecified; I25.10 Atherosclerotic heart disease of native coronary artery without angina pectoris; I48.91 Unspecified atrial fibrillation; Z95.1 Presence of aortocoronary bypass graft
CPT/HCPCS: 36415; 74177; 80053; 81003; 83605; 83690; 85025; 99285; Q9967

== ENCOUNTER → 2020-07-10 | Outpatient (CLI) | payer MEDICARE, OTHER | END | disposition home or self-care (01) | LOC: CFH 13:12 | PROVIDERS: ATTEND Nurse Practitioner Family | DX: R91.1 Solitary pulmonary nodule (principal) | CPT/HCPCS: 71250 ==

== ENCOUNTER 2020-07-14 07:11 | Day surgery (SDC) | payer MEDICARE, OTHER ==
[~2020-07-14] VITALS: Ht 162.6 cm; Wt 77.3 kg
[2020-07-14 07:46] VITALS: BP 140/58
[2020-07-14 08:12] LABS: BASOPHILS % (AUTO) 1 % (0-1); EOSINOPHILS % (AUTO) 2 % (1-7); LYMPHOCYTES % (AUTO) 24 % (22-44); MEAN CORPUSCULAR HEMOGLOBIN 30.1 pg (27.0-34.8); MEAN CORPUSCULAR HGB CONC 33.7 g/dL (32.4-35.8); MEAN PLATELET VOLUME 8.4 fL (7.4-10.4); MONOCYTES % (AUTO) 9 % (2-9); NEUTROPHILS % (AUTO) 65 % (42-75); PLATELET COUNT 151 x10^3/uL (130-400); RED BLOOD COUNT 4.43 x10^6/uL (3.82-5.3); RED CELL DISTRIBUTION WIDTH 13.6 % (9.6-15.2)
[2020-07-14 08:22] LABS: ANION GAP 3 mmol/L (5-15); CALCIUM 8.7 mg/dL (8.5-10.1); CHLORIDE 111 mmol/L (98-107)
[2020-07-14] MEDS ORDERED: VERAPAMIL 2.5 MG/ML, 2ML ONE (08:38)
[2020-07-14] MEDS ORDERED: MIDAZOLAM 1 MG/ML, 5ML ONE (08:39)
[2020-07-14] MEDS ORDERED: HEPARIN 1,000 UNITS/ML, 10ML ONE (08:39)
[2020-07-14] MEDS ORDERED: FENTANYL PF 100 MCG/2ML ONE (08:39)
[2020-07-14] MEDS ORDERED: LIDOCAINE-MPF 1%, 5ML ONE (08:39)
[2020-07-14] MEDS ORDERED: LIDOCAINE 1%, 20ML ONE (09:11)
[2020-07-14] MEDS ORDERED: SODIUM CHLORIDE 0.9% 1,000 ML IV SCH (10:00)
== END 2020-07-14 13:05 | disposition home or self-care (01) ==
LOC: CACL 07:11
PROVIDERS: ATTEND Internal Medicine Cardiovascular Disease
DX: T82.857A Stenosis of other cardiac prosthetic devices, implants and grafts, initial encounter (principal); I35.0 Nonrheumatic aortic (valve) stenosis; I25.10 Atherosclerotic heart disease of native coronary artery without angina pectoris; I11.0 Hypertensive heart disease with heart failure; I50.32 Chronic diastolic (congestive) heart failure; I48.0 Paroxysmal atrial fibrillation; I71.2 Thoracic aortic aneurysm, without rupture; J44.9 Chronic obstructive pulmonary disease, unspecified; E78.00 Pure hypercholesterolemia, unspecified; Z79.01 Long term (current) use of anticoagulants; Z79.899 Other long term (current) drug therapy; Z88.5 Allergy status to narcotic agent; Z88.8 Allergy status to other drugs, medicaments and biological substances; Y83.8 Other surgical procedures as the cause of abnormal reaction of the patient, or of later complication, without mention of misadventure at the time of the procedure
CPT/HCPCS: 36415; 75710; 80048; 85025; 93454; 99156; 99157; C1760; C1769; C1894; J1644; J2250; J3010; Q9967; 76937

== ENCOUNTER 2020-07-24 09:43 | Outpatient (CLI) | payer MEDICARE, OTHER ==
[2020-07-24] MEDS ORDERED: VISIPAQUE 320 MG/ML, 150ML BOTTLE ONE (12:20)
== END 2020-07-24 23:59 | disposition home or self-care (01) ==
LOC: CVU 09:43 → RAD 23:59
PROVIDERS: ATTEND Internal Medicine Cardiovascular Disease
DX: Z01.810 Encounter for preprocedural cardiovascular examination (principal); K44.9 Diaphragmatic hernia without obstruction or gangrene; K40.90 Unilateral inguinal hernia, without obstruction or gangrene, not specified as recurrent; I65.23 Occlusion and stenosis of bilateral carotid arteries
CPT/HCPCS: 71275; 74174; 93880; Q9967

== ENCOUNTER 2020-08-24 17:47 | Emergency (ER) | payer MEDICARE, OTHER ==
[~2020-08-24] VITALS: Ht 162.6 cm; Wt 78.3 kg
--- NOTE | 2020-08-24 18:13 | NUR ---
EKG IN TRIAGE
[2020-08-24 18:21] LABS: BASOPHILS % (AUTO) 1 % (0-1); EOSINOPHILS % (AUTO) 2 % (1-7); LYMPHOCYTES % (AUTO) 26 % (22-44); MEAN CORPUSCULAR HEMOGLOBIN 30.3 pg (27.0-34.8); MEAN CORPUSCULAR HGB CONC 34.2 g/dL (32.4-35.8); MEAN PLATELET VOLUME 8.1 fL (7.4-10.4); MONOCYTES % (AUTO) 9 % (2-9); NEUTROPHILS % (AUTO) 62 % (42-75); PLATELET COUNT 172 x10^3/uL (130-400); RED BLOOD COUNT 4.19 x10^6/uL (3.82-5.3); RED CELL DISTRIBUTION WIDTH 13.9 % (9.6-15.2)
[2020-08-24 18:22] LABS: MD NO
[2020-08-24 18:32] LABS: ALBUMIN 3.5 g/dL (3.4-5.0); ANION GAP 8 mmol/L (5-15); CALCIUM 9.1 mg/dL (8.5-10.1); CHLORIDE 110 mmol/L (98-107)
[2020-08-24 18:36] LABS: TROPONIN I < 0.015 ng/mL (0.000-0.045)
--- NOTE | 2020-08-24 19:16 | NUR ---
HEARING AID CONSULTANT: PT TO ROOM FROM LOBBY.
[2020-08-24] MEDS ORDERED: MECLIZINE CHEWABLE 25 MG TAB ONE (19:45)
--- NOTE | 2020-08-24 19:47 | NUR ---
TASK RN. PT TO IMAGING
[2020-08-24] MEDS ORDERED: MECLIZINE CHEWABLE 25 MG TAB PO ONE (20:00)
--- NOTE | 2020-08-24 20:08 | NUR ---
PT BACK FROM CT. PT MEDICATED PER ORDER.
[2020-08-24 20:23] VITALS: BP 136/66
== END 2020-08-24 21:18 | disposition home or self-care (01) ==
LOC: ED 21:00
DX: R42 Dizziness and giddiness (principal); I11.0 Hypertensive heart disease with heart failure; I50.9 Heart failure, unspecified; I48.91 Unspecified atrial fibrillation; I25.810 Atherosclerosis of coronary artery bypass graft(s) without angina pectoris; I44.7 Left bundle-branch block, unspecified; R94.31 Abnormal electrocardiogram [ECG] [EKG]
CPT/HCPCS: 36415; 70450; 71045; 80048; 82040; 83880; 84484; 85025; 93005; 99285

== ENCOUNTER → 2020-08-30 | Outpatient (CLI) | payer MEDICARE, OTHER | END | disposition home or self-care (01) | LOC: RAD 16:48 | PROVIDERS: ATTEND Internal Medicine Cardiovascular Disease | DX: R22.32 Localized swelling, mass and lump, left upper limb (principal) ==

== ENCOUNTER → 2020-09-01 | Outpatient (CLI) | payer MEDICARE, OTHER | END | disposition home or self-care (01) | LOC: CVU 10:25 | PROVIDERS: ATTEND Internal Medicine Cardiovascular Disease | DX: I08.1 Rheumatic disorders of both mitral and tricuspid valves (principal); I65.29 Occlusion and stenosis of unspecified carotid artery; I11.9 Hypertensive heart disease without heart failure; E78.5 Hyperlipidemia, unspecified; Z95.2 Presence of prosthetic heart valve | CPT/HCPCS: 93306 ==

== ENCOUNTER 2020-12-11 20:13 | Emergency (ER) | payer MEDICARE, OTHER ==
[~2020-12-11] VITALS: Ht 160 cm; Wt 80.5 kg
[2020-12-11 20:46] VITALS: BP 150/70
[2020-12-11 21:37] LABS: BASOPHILS % (AUTO) 1 % (0-1); EOSINOPHILS % (AUTO) 3 % (1-7); LYMPHOCYTES % (AUTO) 15 % (22-44); MEAN CORPUSCULAR HEMOGLOBIN 29.1 pg (27.0-34.8); MEAN CORPUSCULAR HGB CONC 33.5 g/dL (32.4-35.8); MEAN PLATELET VOLUME 8.1 fL (7.4-10.4); MONOCYTES % (AUTO) 9 % (2-9); NEUTROPHILS % (AUTO) 73 % (42-75); PLATELET COUNT 162 x10^3/uL (130-400); RED BLOOD COUNT 4.69 x10^6/uL (3.82-5.3); RED CELL DISTRIBUTION WIDTH 14.5 % (9.6-15.2)
[2020-12-11 21:43] LABS: CHLORIDE 106 mmol/L (98-107)
[2020-12-11 21:57] LABS: ALBUMIN 3.7 g/dL (3.4-5.0); ANION GAP 7 mmol/L (5-15); CALCIUM 9.6 mg/dL (8.5-10.1)
[2020-12-11 22:01] LABS: TROPONIN I < 0.015 ng/mL (0.000-0.045)
--- NOTE | 2020-12-11 22:44 | NUR ---
AGRONOMY LOCATION MANAGER: NIL X 1 WHEN CALLED FOR REPEAT VS.
--- NOTE | 2020-12-11 23:00 | NUR ---
Patient left per lime trimmer.
--- NOTE | 2020-12-11 23:00 | NUR ---
NIL X 2 WHEN CALLED FOR ROOM.
--- NOTE | 2020-12-11 23:15 | NUR ---
NIL X 3 WHEN CALLED FOR ROOM.
== END 2020-12-11 23:18 | disposition left against medical advice (07) ==
LOC: ED 20:30
DX: J06.9 Acute upper respiratory infection, unspecified (principal); R07.89 Other chest pain; Z20.822 Contact with and (suspected) exposure to COVID-19
CPT/HCPCS: 36415; 71045; 80048; 82040; 84484; 85025; 93005; 99285; U0003; U0005

== ENCOUNTER 2020-12-12 12:02 | Emergency (ER) | payer MEDICARE, OTHER ==
--- NOTE | 2020-12-12 13:42 | NUR ---
NA X 3 [id number]
--- NOTE | 2020-12-12 16:49 | NUR ---
patient left without being seen. This nurse called to check on patietn and did not recieve an answer. Left voice mail to call back and to return if she was still wanting to be seen.
== END 2020-12-12 13:49 | disposition left against medical advice (07) ==
LOC: ED 12:15
DX: R05 Cough (principal); R50.9 Fever, unspecified; Z53.21 Procedure and treatment not carried out due to patient leaving prior to being seen by health care provider

== ENCOUNTER 2020-12-12 17:32 | Emergency (ER) | payer MEDICARE, OTHER ==
[~2020-12-12] VITALS: Ht 160 cm; Wt 80.0 kg
--- NOTE | 2020-12-12 18:03 | NUR ---
Pt brought back from triage with chief complaint of flu like symptoms for few days.
--- NOTE | 2020-12-12 18:04 | NUR ---
brad Jasso at bedside for eval
[2020-12-12] MEDS ORDERED: IBUPROFEN 200 MG TABLET ONE (18:22)
[2020-12-12] MEDS ORDERED: IBUPROFEN 200 MG TABLET PO ONE (18:30)
[2020-12-12] MEDS ORDERED: SODIUM CHLORIDE FLUSH 10ML SYR IVF ONE (18:30)
[2020-12-12 18:53] LABS: BASOPHILS % (AUTO) 1 % (0-1); EOSINOPHILS % (AUTO) 2 % (1-7); LYMPHOCYTES % (AUTO) 18 % (22-44); MEAN CORPUSCULAR HEMOGLOBIN 29.1 pg (27.0-34.8); MEAN CORPUSCULAR HGB CONC 33.4 g/dL (32.4-35.8); MEAN PLATELET VOLUME 8.3 fL (7.4-10.4); MONOCYTES % (AUTO) 15 % (2-9); NEUTROPHILS % (AUTO) 65 % (42-75); PLATELET COUNT 139 x10^3/uL (130-400); RED BLOOD COUNT 4.56 x10^6/uL (3.82-5.3); RED CELL DISTRIBUTION WIDTH 14.7 % (9.6-15.2)
--- NOTE | 2020-12-12 19:03 | NUR ---
FIRST ENCOUNTER WITH PATIENT. PATIENT STATES SHE RECENTLY COUGHED UP A LOT OF MUCUS AND FEELS BETTER. PATIENT STATES SHE HAS BEEN TRYING TO COUGH STUFF UP FOR DAYS AND SHE WAS FINALLY ABLE TO DO IT. DENIES NAUSEA. PATIENT ANY DENIES NEEDS AT THIS TIME. FRIEND AT BEDSIDE. CALL LÓPEZ IN REACH. WILL CONTINUE TO MONITOR.
[2020-12-12 19:05] LABS: ALANINE AMINOTRANSFERASE 27 U/L (12-78); ALBUMIN 3.4 g/dL (3.4-5.0); ANION GAP 8 mmol/L (5-15); CALCIUM 8.8 mg/dL (8.5-10.1); CHLORIDE 106 mmol/L (98-107); CREATININE 0.84 mg/dL (0.55-1.02)
[2020-12-12 19:10] LABS: ALKALINE PHOSPHATASE 76 U/L (45-117); BILIRUBIN,TOTAL 0.7 mg/dL (0.2-1.0); TROPONIN I < 0.015 ng/mL (0.000-0.045)
[2020-12-12 19:26] VITALS: BP 140/59
--- NOTE | 2020-12-12 19:34 | NUR ---
PATIENT TO CT AT THIS TIME.
--- NOTE | 2020-12-12 19:47 | NUR ---
PATIENT HAS RETURNED FROM CT. WILL CONTINUE TO MONITOR.
[2020-12-12] MEDS ORDERED: OMNIPAQUE 350 MG/ML, 75ML BOTTLE ONE (19:57)
--- NOTE | 2020-12-12 20:46 | NUR ---
Patient given discharge instructions and they have confirmed that they understand the instructions. Patient ambulatory with steady gait. NAD, all questions answered appropriately, denies additional needs at this time. No personal belongings left in room after discharge.
[2020-12-12] MEDS ORDERED: DEXAMETHASONE 4 MG TABLET ONE (20:48)
[2020-12-12] MEDS ORDERED: DEXAMETHASONE 4 MG TABLET PO ONE (21:00)
== END 2020-12-12 20:53 | disposition home or self-care (01) ==
LOC: ED 18:05
DX: J06.9 Acute upper respiratory infection, unspecified (principal); R79.89 Other specified abnormal findings of blood chemistry; R94.31 Abnormal electrocardiogram [ECG] [EKG]; I10 Essential (primary) hypertension; I25.10 Atherosclerotic heart disease of native coronary artery without angina pectoris; I48.91 Unspecified atrial fibrillation; Z95.1 Presence of aortocoronary bypass graft
CPT/HCPCS: 36415; 71045; 71275; 80053; 83605; 83880; 84145; 84484; 85025; 85379; 87040; 93005; 99285; Q9967

== ENCOUNTER 2020-12-17 16:24 | Inpatient (IN) | payer MEDICARE, OTHER ==
[~2020-12-17] VITALS: Ht 154.9 cm; Wt 77.8 kg
[2020-12-17 17:24] LABS: BASOPHILS % (AUTO) 1 % (0-1); EOSINOPHILS % (AUTO) 0 % (1-7); LYMPHOCYTES % (AUTO) 24 % (22-44); MEAN CORPUSCULAR HEMOGLOBIN 28.8 pg (27.0-34.8); MEAN CORPUSCULAR HGB CONC 33.8 g/dL (32.4-35.8); MEAN PLATELET VOLUME 8.5 fL (7.4-10.4); MONOCYTES % (AUTO) 9 % (2-9); NEUTROPHILS % (AUTO) 67 % (42-75); PLATELET COUNT 138 x10^3/uL (130-400); RED BLOOD COUNT 5.19 x10^6/uL (3.82-5.3); RED CELL DISTRIBUTION WIDTH 14.8 % (9.6-15.2)
[2020-12-17 17:29] LABS: ALANINE AMINOTRANSFERASE 30 U/L (12-78); ALBUMIN 3.3 g/dL (3.4-5.0); ANION GAP 12 mmol/L (5-15); CALCIUM 9.2 mg/dL (8.5-10.1); CHLORIDE 101 mmol/L (98-107); CREATININE 1.35 mg/dL (0.55-1.02)
[2020-12-17 17:33] LABS: ALKALINE PHOSPHATASE 73 U/L (45-117); TOTAL PROTEIN 7.4 g/dL (6.4-8.2); TROPONIN I 0.024 ng/mL (0.000-0.045)
--- NOTE | 2020-12-17 18:16 | NUR ---
grass cutter: Pt WHEELED to room from lobby at this time.
[2020-12-17 19:40] LABS: MICROSCOPIC INDICATED
[2020-12-17] MEDS ORDERED: MELATONIN 5 MG TABLET PO PRN (20:00)
[2020-12-17] MEDS ORDERED: PHARMACY MAY ADJ FOR RENAL FX MC PRN (20:00)
[2020-12-17] MEDS ORDERED: ACETAMINOPHEN 325 MG TABLET PO SCH (20:00)
[2020-12-17] MEDS ORDERED: ONDANSETRON 2MG/ML, 2ML IVPush PRN (20:00)
[2020-12-17] MEDS ORDERED: LABETALOL 5MG/ML, 20ML IVPush PRN (20:00)
[2020-12-17] MEDS ORDERED: POLYETHYLENE GLYCOL 17 GM PACKET PO PRN (20:00)
[2020-12-17] MEDS ORDERED: ENOXAPARIN 40 MG/0.4 ML SQ SCH (20:00)
[2020-12-17] MEDS ORDERED: ACETAMINOPHEN 500 MG TABLET ONE (20:10)
[2020-12-17] MEDS: CEFTRIAXONE 2 GM in DEXTROSE 5% 50 ML IVPB SCH (20:45)
--- NOTE | 2020-12-17 21:15 | NUR ---
awaiting po lasix from pharmacy
[2020-12-17] MEDS: FUROSEMIDE 20 MG TABLET PO SCH (22:40)
[2020-12-17 22:45] VITALS: BP 127/73
[2020-12-18 00:13] LABS: RAPID INFLUENZA A Negative (Negative); RAPID INFLUENZA B Negative (Negative)
[2020-12-18 02:25] VITALS: BP 118/69
[2020-12-18 02:30] LABS: TROPONIN I 0.021 ng/mL (0.000-0.045)
[2020-12-18 05:57] LABS: BASOPHILS % (AUTO) 1 % (0-1); EOSINOPHILS % (AUTO) 0 % (1-7); LYMPHOCYTES % (AUTO) 35 % (22-44); MEAN CORPUSCULAR HEMOGLOBIN 28.6 pg (27.0-34.8); MEAN CORPUSCULAR HGB CONC 33.5 g/dL (32.4-35.8); MEAN PLATELET VOLUME 8.4 fL (7.4-10.4); MONOCYTES % (AUTO) 11 % (2-9); NEUTROPHILS % (AUTO) 53 % (42-75); PLATELET COUNT 116 x10^3/uL (130-400); RED BLOOD COUNT 4.77 x10^6/uL (3.82-5.3); RED CELL DISTRIBUTION WIDTH 14.6 % (9.6-15.2)
[2020-12-18 06:06] LABS: ANION GAP 11 mmol/L (5-15); CALCIUM 8.9 mg/dL (8.5-10.1); CHLORIDE 99 mmol/L (98-107); CREATININE 1.14 mg/dL (0.55-1.02)
[2020-12-18] MEDS ORDERED: MAGNESIUM SULFATE PMX 2GM/50ML 50 ML IV ONE (07:30)
[2020-12-18 08:00] VITALS: BP 139/82
[2020-12-18] MEDS ORDERED: CHOLECALCIFEROL 1,000 UNIT TABLET PO SCH (09:30)
[2020-12-18] MEDS ORDERED: FLUTICASONE/VILANTEROL 200-25MCG/INH INH SCH (09:30)
[2020-12-18] MEDS: FUROSEMIDE 20 MG TABLET PO SCH ×2 (10:09→18:00)
[2020-12-18] MEDS: METOPROLOL SUCCINATE 25 MG TAB.ER.24H PO SCH (11:24)
[2020-12-18] MEDS: APIXABAN 5 MG TABLET PO SCH ×2 (11:24→21:49)
[2020-12-18] MEDS: LOSARTAN 50MG TABLET PO SCH (11:24)
[2020-12-18] MEDS: ACETAMINOPHEN 500 MG TABLET PO PRN (13:08)
[2020-12-18 14:00] VITALS: BP 132/79
[2020-12-18] MEDS ORDERED: BUDESONIDE 0.5 MG/2 ML INHA NPPB SCH (21:00)
[2020-12-18 21:54] VITALS: BP 103/47
[2020-12-18] MEDS: CEFTRIAXONE 2 GM in DEXTROSE 5% 50 ML IVPB SCH (22:12)
[2020-12-19 01:40] VITALS: BP 119/66
[2020-12-19] MEDS: ALBUTEROL HFA 90 MCG/SPRAY INH PRN (04:57)
[2020-12-19 06:08] LABS: BASOPHILS % (AUTO) 0 % (0-1); EOSINOPHILS % (AUTO) 0 % (1-7); LYMPHOCYTES % (AUTO) 22 % (22-44); MEAN CORPUSCULAR HEMOGLOBIN 28.9 pg (27.0-34.8); MEAN CORPUSCULAR HGB CONC 33.9 g/dL (32.4-35.8); MEAN PLATELET VOLUME 8.7 fL (7.4-10.4); MONOCYTES % (AUTO) 9 % (2-9); NEUTROPHILS % (AUTO) 68 % (42-75); PLATELET COUNT 122 x10^3/uL (130-400); RED BLOOD COUNT 4.84 x10^6/uL (3.82-5.3); RED CELL DISTRIBUTION WIDTH 14.6 % (9.6-15.2)
[2020-12-19 06:16] LABS: ALBUMIN 2.8 g/dL (3.4-5.0); ANION GAP 9 mmol/L (5-15); CALCIUM 8.4 mg/dL (8.5-10.1); CHLORIDE 98 mmol/L (98-107)
[2020-12-19 06:19] LABS: ALANINE AMINOTRANSFERASE 26 U/L (12-78); ALKALINE PHOSPHATASE 65 U/L (45-117); BILIRUBIN,TOTAL 0.6 mg/dL (0.2-1.0); CREATININE 1.21 mg/dL (0.55-1.02); TOTAL PROTEIN 6.8 g/dL (6.4-8.2)
[2020-12-19] MEDS: METOPROLOL SUCCINATE 25 MG TAB.ER.24H PO SCH (07:47)
[2020-12-19] MEDS: LOSARTAN 50MG TABLET PO SCH (07:47)
[2020-12-19] MEDS: FUROSEMIDE 20 MG TABLET PO SCH (07:47)
[2020-12-19] MEDS: APIXABAN 5 MG TABLET PO SCH ×2 (07:48→20:08)
[2020-12-19] MEDS: CHOLECALCIFEROL 5,000u TAB PO SCH ×2 (07:48→14:30)
[2020-12-19] MEDS: FLUTICASONE/VILANTEROL 100-25MCG/INH INH SCH (07:49)
[2020-12-19 08:00] VITALS: BP 101/68
[2020-12-19] MEDS: FUROSEMIDE 40 MG/4 ML IV SCH ×2 (11:00→16:30)
[2020-12-19 14:00] VITALS: BP 124/66
[2020-12-19] MEDS: ASCORBIC ACID 500 MG TABLET PO SCH ×2 (16:29→16:31)
[2020-12-19] MEDS: ZINC SULFATE 220 MG CAPSULE PO SCH (16:30)
[2020-12-19] MEDS ORDERED: CALCIUM CARBONATE 500 MG TAB.CHEW ONE (17:28)
[2020-12-19] MEDS ORDERED: CALCIUM CARBONATE 500 MG TAB.CHEW PO PRN (17:30)
[2020-12-19 20:08] VITALS: BP 108/46
[2020-12-19] MEDS: CEFTRIAXONE 2 GM in DEXTROSE 5% 50 ML IVPB SCH (20:08)
[2020-12-19] MEDS: ACETAMINOPHEN 500 MG TABLET PO PRN (20:34)
[2020-12-20 01:53] VITALS: BP 93/58
[2020-12-20 08:07] VITALS: BP 133/68
[2020-12-20] MEDS: FUROSEMIDE 40 MG/4 ML IV SCH (08:41)
[2020-12-20] MEDS: ASCORBIC ACID 500 MG TABLET PO SCH ×2 (08:42→17:58)
[2020-12-20] MEDS: METOPROLOL SUCCINATE 25 MG TAB.ER.24H PO SCH (08:42)
[2020-12-20] MEDS: ZINC SULFATE 220 MG CAPSULE PO SCH (08:42)
[2020-12-20] MEDS: APIXABAN 5 MG TABLET PO SCH (08:42)
[2020-12-20] MEDS: OMEPRAZOLE 20 MG CAPSULE.DR PO SCH (08:42)
[2020-12-20] MEDS: CHOLECALCIFEROL 5,000u TAB PO SCH ×2 (08:43)
[2020-12-20] MEDS: LOSARTAN 50MG TABLET PO SCH (08:43)
[2020-12-20 08:53] LABS: BASOPHILS % (AUTO) 1 % (0-1); EOSINOPHILS % (AUTO) 0 % (1-7); LYMPHOCYTES % (AUTO) 23 % (22-44); MEAN CORPUSCULAR HEMOGLOBIN 28.4 pg (27.0-34.8); MEAN CORPUSCULAR HGB CONC 33.7 g/dL (32.4-35.8); MEAN PLATELET VOLUME 8.7 fL (7.4-10.4); MONOCYTES % (AUTO) 7 % (2-9); NEUTROPHILS % (AUTO) 69 % (42-75); PLATELET COUNT 135 x10^3/uL (130-400); RED BLOOD COUNT 4.96 x10^6/uL (3.82-5.3); RED CELL DISTRIBUTION WIDTH 14.8 % (9.6-15.2)
[2020-12-20] MEDS: GUAIFENESIN/DM 200-20MG, 10ML UDC PO PRN (08:56)
[2020-12-20 09:05] LABS: ALBUMIN 2.9 g/dL (3.4-5.0); ANION GAP 13 mmol/L (5-15); CALCIUM 8.8 mg/dL (8.5-10.1); CHLORIDE 97 mmol/L (98-107)
[2020-12-20 09:09] LABS: ALANINE AMINOTRANSFERASE 24 U/L (12-78); ALKALINE PHOSPHATASE 70 U/L (45-117); BILIRUBIN,TOTAL 0.6 mg/dL (0.2-1.0); CREATININE 1.64 mg/dL (0.55-1.02); TOTAL PROTEIN 6.8 g/dL (6.4-8.2)
[2020-12-20 09:14] LABS: HCT (SEDRATE) 41.8 % (34.6-47.8)
[2020-12-20] MEDS: FLUTICASONE/VILANTEROL 100-25MCG/INH INH SCH (10:43)
[2020-12-20] MEDS: ACETAMINOPHEN 500 MG TABLET PO PRN (10:48)
[2020-12-20 12:15] LABS: CLOSTRIDIUM DIFFICILE ANTIGEN NEGATIVE; CLOSTRIDIUM DIFFICILE TOXIN NEGATIVE (Negative)
[2020-12-20 13:45] VITALS: BP 128/70
[2020-12-20] MEDS ORDERED: DIAZEPAM 5 MG/ML, 2ML IV ONE (15:00)
[2020-12-20] MEDS: CEFTRIAXONE 2 GM in DEXTROSE 5% 50 ML IVPB SCH (15:11)
[2020-12-20] MEDS: DOXYCYCLINE 100MG TABLET PO SCH ×2 (15:11→20:04)
[2020-12-20 20:01] VITALS: BP 108/66
[2020-12-20] MEDS: APIXABAN 2.5 MG TABLET PO SCH (20:04)
[2020-12-21 02:27] VITALS: BP 108/47
[2020-12-21 06:10] LABS: BASOPHILS % (AUTO) 0 % (0-1); EOSINOPHILS % (AUTO) 0 % (1-7); LYMPHOCYTES % (AUTO) 9 % (22-44); MEAN CORPUSCULAR HEMOGLOBIN 28.6 pg (27.0-34.8); MONOCYTES % (AUTO) 5 % (2-9); NEUTROPHILS % (AUTO) 87 % (42-75); PLATELET COUNT 140 x10^3/uL (130-400); RED CELL DISTRIBUTION WIDTH 14.4 % (9.6-15.2)
[2020-12-21 06:22] LABS: ALBUMIN 2.6 g/dL (3.4-5.0); ANION GAP 11 mmol/L (5-15); CALCIUM 8.5 mg/dL (8.5-10.1); CHLORIDE 97 mmol/L (98-107)
[2020-12-21 06:29] LABS: ALANINE AMINOTRANSFERASE 22 U/L (12-78); ALKALINE PHOSPHATASE 67 U/L (45-117); BILIRUBIN,TOTAL 0.5 mg/dL (0.2-1.0); CREATININE 1.22 mg/dL (0.55-1.02); TOTAL PROTEIN 6.4 g/dL (6.4-8.2)
[2020-12-21 06:56] VITALS: BP 114/65
[2020-12-21] MEDS ORDERED: DEXAMETHASONE 4 MG/ML, 1ML IVPush ONE (09:00)
[2020-12-21] MEDS: OMEPRAZOLE 20 MG CAPSULE.DR PO SCH (09:26)
[2020-12-21] MEDS: LOSARTAN 50MG TABLET PO SCH (09:26)
[2020-12-21] MEDS: METOPROLOL SUCCINATE 25 MG TAB.ER.24H PO SCH (09:26)
[2020-12-21] MEDS: ZINC SULFATE 220 MG CAPSULE PO SCH (09:27)
[2020-12-21] MEDS: APIXABAN 2.5 MG TABLET PO SCH ×2 (09:27→20:23)
[2020-12-21] MEDS: DOXYCYCLINE 100MG TABLET PO SCH ×2 (09:27→20:23)
[2020-12-21] MEDS: CHOLECALCIFEROL 5,000u TAB PO SCH ×2 (09:27)
[2020-12-21] MEDS: ASCORBIC ACID 500 MG TABLET PO SCH ×2 (09:27→16:45)
[2020-12-21] MEDS: FUROSEMIDE 40 MG/4 ML IV SCH (09:28)
[2020-12-21] MEDS: FLUTICASONE/VILANTEROL 100-25MCG/INH INH SCH (09:28)
[2020-12-21] MEDS: ALBUTEROL HFA 90 MCG/SPRAY INH PRN (09:28)
[2020-12-21] MEDS ORDERED: DIAZEPAM 5 MG/ML, 2ML ONE ×2 (13:05→13:12)
[2020-12-21 14:00] VITALS: BP 95/59
[2020-12-21] MEDS ORDERED: DIAZEPAM 5 MG/ML, 2ML IV ONE (14:00)
[2020-12-21] MEDS: CEFTRIAXONE 2 GM in DEXTROSE 5% 50 ML IVPB SCH (16:43)
[2020-12-21] MEDS ORDERED: REMDESIVIR 200 MG in SODIUM CHLORIDE 0.9% 250 ML IVPB ONE (17:00)
[2020-12-21 20:11] VITALS: BP 99/64
[2020-12-21] MEDS: GUAIFENESIN/DM 200-20MG, 10ML UDC PO PRN (20:23)
[2020-12-22] VITALS: BP 95/56
[2020-12-22] MEDS: ACETAMINOPHEN 500 MG TABLET PO PRN ×2 (05:48→20:04)
[2020-12-22 06:26] LABS: ALANINE AMINOTRANSFERASE 23 U/L (12-78); ALBUMIN 2.5 g/dL (3.4-5.0); ANION GAP 13 mmol/L (5-15); CALCIUM 9.1 mg/dL (8.5-10.1); CHLORIDE 97 mmol/L (98-107)
[2020-12-22 06:29] LABS: ALKALINE PHOSPHATASE 69 U/L (45-117); BILIRUBIN,TOTAL 0.5 mg/dL (0.2-1.0); CREATININE 1.29 mg/dL (0.55-1.02); TOTAL PROTEIN 6.7 g/dL (6.4-8.2)
[2020-12-22 07:57] VITALS: BP 107/68
[2020-12-22] MEDS: LOSARTAN 50MG TABLET PO SCH (08:18)
[2020-12-22] MEDS: DOXYCYCLINE 100MG TABLET PO SCH ×2 (08:18→20:04)
[2020-12-22] MEDS: APIXABAN 2.5 MG TABLET PO SCH (08:18)
[2020-12-22] MEDS: ASCORBIC ACID 500 MG TABLET PO SCH ×2 (08:18→16:43)
[2020-12-22] MEDS: METOPROLOL SUCCINATE 25 MG TAB.ER.24H PO SCH (08:19)
[2020-12-22] MEDS: CHOLECALCIFEROL 5,000u TAB PO SCH (08:19)
[2020-12-22] MEDS: FUROSEMIDE 40 MG/4 ML IV SCH (08:21)
[2020-12-22] MEDS: FLUTICASONE/VILANTEROL 100-25MCG/INH INH SCH (08:21)
[2020-12-22] MEDS: OMEPRAZOLE 20 MG CAPSULE.DR PO SCH (08:21)
[2020-12-22] MEDS: ZINC SULFATE 220 MG CAPSULE PO SCH (08:22)
[2020-12-22] MEDS ORDERED: DEXAMETHASONE 4 MG/ML, 1ML IVPush ONE (09:00)
[2020-12-22 13:19] VITALS: BP 90/61
[2020-12-22] MEDS: CEFTRIAXONE 2 GM in DEXTROSE 5% 50 ML IVPB SCH (13:19)
[2020-12-22] MEDS: REMDESIVIR 100 MG in SODIUM CHLORIDE 0.9% 250 ML IVPB SCH (16:43)
[2020-12-22 18:46] VITALS: BP 102/56
[2020-12-22] MEDS: GUAIFENESIN/DM 200-20MG, 10ML UDC PO PRN (20:04)
[2020-12-22] MEDS: APIXABAN 5 MG TABLET PO SCH (20:04)
[2020-12-23 01:10] VITALS: BP 103/63
[2020-12-23 05:55] LABS: ALANINE AMINOTRANSFERASE 32 U/L (12-78); ALBUMIN 2.3 g/dL (3.4-5.0); ANION GAP 10 mmol/L (5-15); CALCIUM 8.7 mg/dL (8.5-10.1); CHLORIDE 100 mmol/L (98-107)
[2020-12-23 05:57] LABS: ALKALINE PHOSPHATASE 71 U/L (45-117); BILIRUBIN,TOTAL 0.3 mg/dL (0.2-1.0); TOTAL PROTEIN 6.6 g/dL (6.4-8.2)
[2020-12-23 07:30] VITALS: BP 100/60
[2020-12-23 08:05] VITALS: BP 102/55
[2020-12-23] MEDS: FUROSEMIDE 40 MG/4 ML IV SCH (08:20)
[2020-12-23] MEDS: ASCORBIC ACID 500 MG TABLET PO SCH ×2 (08:21→17:09)
[2020-12-23] MEDS: DOXYCYCLINE 100MG TABLET PO SCH ×2 (08:21→21:04)
[2020-12-23] MEDS: METOPROLOL SUCCINATE 25 MG TAB.ER.24H PO SCH (08:21)
[2020-12-23] MEDS: LOSARTAN 50MG TABLET PO SCH (08:21)
[2020-12-23] MEDS: OMEPRAZOLE 20 MG CAPSULE.DR PO SCH (08:21)
[2020-12-23] MEDS: CHOLECALCIFEROL 5,000u TAB PO SCH (08:21)
[2020-12-23] MEDS: ZINC SULFATE 220 MG CAPSULE PO SCH (08:21)
[2020-12-23] MEDS: APIXABAN 5 MG TABLET PO SCH ×2 (08:21→21:04)
[2020-12-23] MEDS: FLUTICASONE/VILANTEROL 100-25MCG/INH INH SCH (08:22)
[2020-12-23] MEDS: ACETAMINOPHEN 500 MG TABLET PO PRN ×3 (11:41→21:04)
[2020-12-23] MEDS: CEFTRIAXONE 2 GM in DEXTROSE 5% 50 ML IVPB SCH (13:01)
[2020-12-23 13:15] VITALS: BP 121/68
[2020-12-23] MEDS ORDERED: DEXAMETHASONE 4 MG/ML, 1ML IVPush ONE (17:00)
[2020-12-23] MEDS: REMDESIVIR 100 MG in SODIUM CHLORIDE 0.9% 250 ML IVPB SCH (17:09)
[2020-12-23 19:47] VITALS: BP 100/72
[2020-12-24 01:00] VITALS: BP 101/59
[2020-12-24 06:16] LABS: BASOPHILS % (AUTO) 0 % (0-1); EOSINOPHILS % (AUTO) 0 % (1-7); LYMPHOCYTES % (AUTO) 5 % (22-44); MEAN CORPUSCULAR HEMOGLOBIN 28.5 pg (27.0-34.8); MEAN CORPUSCULAR HGB CONC 33.7 g/dL (32.4-35.8); MEAN PLATELET VOLUME 8.9 fL (7.4-10.4); MONOCYTES % (AUTO) 4 % (2-9); NEUTROPHILS % (AUTO) 92 % (42-75); PLATELET COUNT 209 x10^3/uL (130-400); RED BLOOD COUNT 5.11 x10^6/uL (3.82-5.3); RED CELL DISTRIBUTION WIDTH 14.6 % (9.6-15.2)
[2020-12-24 06:24] LABS: D-DIMER 0.75 ug/mlFEU (0.00-0.52)
[2020-12-24 06:26] LABS: ALBUMIN 2.6 g/dL (3.4-5.0); ANION GAP 9 mmol/L (5-15); CALCIUM 9.3 mg/dL (8.5-10.1); CHLORIDE 100 mmol/L (98-107)
[2020-12-24 06:28] LABS: HCT (SEDRATE) 43.6 % (34.6-47.8)
[2020-12-24 06:30] LABS: ALANINE AMINOTRANSFERASE 46 U/L (12-78); ALKALINE PHOSPHATASE 86 U/L (45-117); BILIRUBIN,TOTAL 0.5 mg/dL (0.2-1.0); C-REACTIVE PROTEIN, QUANT 0.86 mg/dL (0.02-0.49)
[2020-12-24 06:31] LABS: TOTAL PROTEIN 7.1 g/dL (6.4-8.2)
[2020-12-24 08:40] VITALS: BP 106/70
[2020-12-24] MEDS: FUROSEMIDE 40 MG/4 ML IV SCH (08:50)
[2020-12-24] MEDS: METOPROLOL SUCCINATE 25 MG TAB.ER.24H PO SCH (08:51)
[2020-12-24] MEDS: ZINC SULFATE 220 MG CAPSULE PO SCH (08:51)
[2020-12-24] MEDS: DOXYCYCLINE 100MG TABLET PO SCH ×2 (08:51→21:59)
[2020-12-24] MEDS: ASCORBIC ACID 500 MG TABLET PO SCH ×2 (08:51→17:27)
[2020-12-24] MEDS: CHOLECALCIFEROL 5,000u TAB PO SCH (08:51)
[2020-12-24] MEDS: LOSARTAN 50MG TABLET PO SCH (08:51)
[2020-12-24] MEDS: OMEPRAZOLE 20 MG CAPSULE.DR PO SCH (08:51)
[2020-12-24] MEDS: APIXABAN 5 MG TABLET PO SCH ×2 (08:51→21:59)
[2020-12-24 08:54] VITALS: BP 119/74
[2020-12-24] MEDS: ALBUTEROL HFA 90 MCG/SPRAY INH PRN (08:57)
[2020-12-24] MEDS: FLUTICASONE/VILANTEROL 100-25MCG/INH INH SCH (08:57)
[2020-12-24] MEDS: CEFTRIAXONE 2 GM in DEXTROSE 5% 50 ML IVPB SCH (13:48)
[2020-12-24 14:56] VITALS: BP 118/75
[2020-12-24] MEDS: REMDESIVIR 100 MG in SODIUM CHLORIDE 0.9% 250 ML IVPB SCH (17:26)
[2020-12-24 20:10] VITALS: BP 116/69
[2020-12-24] MEDS: ACETAMINOPHEN 500 MG TABLET PO PRN (21:59)
[2020-12-25 02:02] VITALS: BP 109/72
[2020-12-25 06:34] LABS: BASOPHILS % (AUTO) 0 % (0-1); EOSINOPHILS % (AUTO) 0 % (1-7); LYMPHOCYTES % (AUTO) 6 % (22-44); MEAN CORPUSCULAR HEMOGLOBIN 28.2 pg (27.0-34.8); MEAN CORPUSCULAR HGB CONC 33.2 g/dL (32.4-35.8); MEAN PLATELET VOLUME 8.8 fL (7.4-10.4); MONOCYTES % (AUTO) 4 % (2-9); NEUTROPHILS % (AUTO) 90 % (42-75); PLATELET COUNT 197 x10^3/uL (130-400); RED BLOOD COUNT 4.96 x10^6/uL (3.82-5.3); RED CELL DISTRIBUTION WIDTH 14.6 % (9.6-15.2)
[2020-12-25 06:46] LABS: D-DIMER 0.85 ug/mlFEU (0.00-0.52)
[2020-12-25 06:49] LABS: ALBUMIN 2.4 g/dL (3.4-5.0); ANION GAP 9 mmol/L (5-15); CALCIUM 8.9 mg/dL (8.5-10.1); CHLORIDE 101 mmol/L (98-107)
[2020-12-25 06:57] LABS: ALANINE AMINOTRANSFERASE 42 U/L (12-78); ALKALINE PHOSPHATASE 84 U/L (45-117); BILIRUBIN,TOTAL 0.5 mg/dL (0.2-1.0); CREATININE 1.02 mg/dL (0.55-1.02); TOTAL PROTEIN 6.6 g/dL (6.4-8.2)
[2020-12-25 07:15] LABS: HCT (SEDRATE) 42.2 % (34.6-47.8)
[2020-12-25 07:32] VITALS: BP 112/52
[2020-12-25] MEDS: APIXABAN 5 MG TABLET PO SCH ×2 (08:44→22:35)
[2020-12-25] MEDS: OMEPRAZOLE 20 MG CAPSULE.DR PO SCH (08:44)
[2020-12-25] MEDS: ZINC SULFATE 220 MG CAPSULE PO SCH (08:44)
[2020-12-25] MEDS: FUROSEMIDE 40 MG/4 ML IV SCH (08:44)
[2020-12-25] MEDS: ASCORBIC ACID 500 MG TABLET PO SCH ×2 (08:44→16:53)
[2020-12-25] MEDS: METOPROLOL SUCCINATE 25 MG TAB.ER.24H PO SCH (08:44)
[2020-12-25] MEDS: DOXYCYCLINE 100MG TABLET PO SCH (08:44)
[2020-12-25] MEDS: ALBUTEROL HFA 90 MCG/SPRAY INH PRN ×2 (08:45→15:00)
[2020-12-25] MEDS: FLUTICASONE/VILANTEROL 100-25MCG/INH INH SCH (08:45)
[2020-12-25] MEDS: LOSARTAN 50MG TABLET PO SCH (08:45)
[2020-12-25] MEDS: CHOLECALCIFEROL 5,000u TAB PO SCH (08:45)
[2020-12-25 12:43] VITALS: BP 111/71
[2020-12-25] MEDS: CEFTRIAXONE 2 GM in DEXTROSE 5% 50 ML IVPB SCH (14:55)
[2020-12-25] MEDS: REMDESIVIR 100 MG in SODIUM CHLORIDE 0.9% 250 ML IVPB SCH (16:53)
[2020-12-25 20:40] VITALS: BP 115/74
[2020-12-25] MEDS: GUAIFENESIN ER 600 MG TABLET PO SCH (22:35)
[2020-12-26 01:20] VITALS: BP 112/71
[2020-12-26 07:55] VITALS: BP 97/63
[2020-12-26] MEDS: ALBUTEROL HFA 90 MCG/SPRAY INH PRN (08:34)
[2020-12-26] MEDS: OMEPRAZOLE 20 MG CAPSULE.DR PO SCH (08:34)
[2020-12-26] MEDS: ZINC SULFATE 220 MG CAPSULE PO SCH (08:34)
[2020-12-26] MEDS: GUAIFENESIN ER 600 MG TABLET PO SCH ×2 (08:34→21:50)
[2020-12-26] MEDS: METOPROLOL SUCCINATE 25 MG TAB.ER.24H PO SCH ×2 (08:35→08:42)
[2020-12-26] MEDS: FUROSEMIDE 40 MG/4 ML IV SCH (08:35)
[2020-12-26] MEDS: APIXABAN 5 MG TABLET PO SCH ×2 (08:35→21:50)
[2020-12-26] MEDS: LOSARTAN 50MG TABLET PO SCH ×2 (08:35→08:43)
[2020-12-26] MEDS: CHOLECALCIFEROL 5,000u TAB PO SCH (08:35)
[2020-12-26] MEDS: ASCORBIC ACID 500 MG TABLET PO SCH ×2 (08:35→17:20)
[2020-12-26] MEDS: FLUTICASONE/VILANTEROL 100-25MCG/INH INH SCH (08:36)
[2020-12-26 14:05] VITALS: BP 105/60
[2020-12-26 19:13] VITALS: BP 113/63
[2020-12-26 23:32] VITALS: BP 97/54
[2020-12-27] MEDS: LOSARTAN 50MG TABLET PO SCH (09:00)
[2020-12-27] MEDS: FLUTICASONE/VILANTEROL 100-25MCG/INH INH SCH (09:17)
[2020-12-27] MEDS: ASCORBIC ACID 500 MG TABLET PO SCH ×2 (09:18→15:24)
[2020-12-27] MEDS: DEXAMETHASONE 4 MG/ML, 1ML IVPush SCH ×3 (09:18→20:41)
[2020-12-27] MEDS: FUROSEMIDE 40 MG/4 ML IV SCH (09:18)
[2020-12-27] MEDS: METOPROLOL SUCCINATE 25 MG TAB.ER.24H PO SCH (09:19)
[2020-12-27] MEDS: OMEPRAZOLE 20 MG CAPSULE.DR PO SCH (09:19)
[2020-12-27] MEDS: APIXABAN 5 MG TABLET PO SCH ×2 (09:19→20:41)
[2020-12-27] MEDS: CHOLECALCIFEROL 5,000u TAB PO SCH (09:19)
[2020-12-27] MEDS: GUAIFENESIN ER 600 MG TABLET PO SCH ×2 (09:19→20:41)
[2020-12-27] MEDS: ZINC SULFATE 220 MG CAPSULE PO SCH (09:20)
[2020-12-27 09:41] VITALS: BP 103/63
[2020-12-27 14:17] VITALS: BP 92/56
[2020-12-27 20:11] VITALS: BP 92/61
[2020-12-28 00:09] VITALS: BP 91/56
[2020-12-28] MEDS: DEXAMETHASONE 4 MG/ML, 1ML IVPush SCH ×2 (03:47→09:37)
[2020-12-28 06:16] LABS: BASOPHILS % (AUTO) 0 % (0-1); EOSINOPHILS % (AUTO) 0 % (1-7); LYMPHOCYTES % (AUTO) 4 % (22-44); MEAN CORPUSCULAR HEMOGLOBIN 28.8 pg (27.0-34.8); MEAN CORPUSCULAR HGB CONC 33.9 g/dL (32.4-35.8); MEAN PLATELET VOLUME 8.5 fL (7.4-10.4); MONOCYTES % (AUTO) 3 % (2-9); NEUTROPHILS % (AUTO) 93 % (42-75); PLATELET COUNT 216 x10^3/uL (130-400); RED CELL DISTRIBUTION WIDTH 14.7 % (9.6-15.2)
[2020-12-28 06:27] LABS: CHLORIDE 99 mmol/L (98-107)
[2020-12-28 06:31] LABS: ANION GAP 13 mmol/L (5-15); CALCIUM 8.6 mg/dL (8.5-10.1); CREATININE 1.21 mg/dL (0.55-1.02)
[2020-12-28 06:37] VITALS: BP 98/45
[2020-12-28] MEDS: FUROSEMIDE 40 MG/4 ML IV SCH (09:36)
[2020-12-28] MEDS: ASCORBIC ACID 500 MG TABLET PO SCH ×2 (09:37→17:00)
[2020-12-28] MEDS: GUAIFENESIN ER 600 MG TABLET PO SCH ×2 (09:37→21:00)
[2020-12-28] MEDS: OMEPRAZOLE 20 MG CAPSULE.DR PO SCH (09:37)
[2020-12-28] MEDS: METOPROLOL SUCCINATE 25 MG TAB.ER.24H PO SCH (09:37)
[2020-12-28] MEDS: CHOLECALCIFEROL 5,000u TAB PO SCH (09:37)
[2020-12-28] MEDS: APIXABAN 5 MG TABLET PO SCH (09:38)
[2020-12-28] MEDS: LOSARTAN 50MG TABLET PO SCH (09:38)
[2020-12-28] MEDS: FLUTICASONE/VILANTEROL 100-25MCG/INH INH SCH (09:39)
[2020-12-28] MEDS: ZINC SULFATE 220 MG CAPSULE PO SCH (10:15)
[2020-12-28 13:47] VITALS: BP 97/52
[2020-12-28] MEDS ORDERED: PROPOFOL 100 ML IV ONE (14:03)
[2020-12-28] MEDS ORDERED: NOREPINEPHRINE 1 MG/ML, 4ML ONE (15:45)
[2020-12-28] MEDS ORDERED: DOPAMINE/D5W PMX 250 ML ONE (15:47)
[2020-12-28] MEDS ORDERED: DOPAMINE/D5W PMX 250 ML IV PRN (16:00)
[2020-12-28] MEDS ORDERED: ENOXAPARIN 80 MG/0.8 ML SQ SCH ×2 (18:00)
[2020-12-28] MEDS ORDERED: PHARMACY MAY ADJ FOR RENAL FX MC SCH (18:30)
[2020-12-28] MEDS ORDERED: DEXTROSE 50%, 50ML SYRINGE IVPush PRN (18:30)
[2020-12-28] MEDS ORDERED: NOREPINEPHRINE 8 MG in SODIUM CHLORIDE 0.9% 242 ML IV PRN (18:30)
[2020-12-28] MEDS ORDERED: GLUCAGON 1 MG IM PRN (18:30)
[2020-12-28] MEDS ORDERED: DEXTROSE 4 GM TAB.CHEW PO PRN (18:30)
[2020-12-28] MEDS ORDERED: LIDOCAINE-MPF 1%, 2ML ENDO PRN (18:30)
[2020-12-28] MEDS: PROPOFOL 100 ML IV PRN (18:34)
[2020-12-28] MEDS: NOREPINEPHRINE 8 MG in SODIUM CHLORIDE 0.9% 242 ML IV PRN (19:18)
[2020-12-28] MEDS: SODIUM CHLORIDE FLUSH 10ML SYR IVF SCH (21:00)
[2020-12-28 21:17] LABS: MICROSCOPIC AUTO
[2020-12-29] MEDS: PROPOFOL 100 ML IV PRN ×3 (02:07→21:44)
[2020-12-29] MEDS ORDERED: LACTATED RINGERS 500 ML IVBOLUS ONE (02:30)
[2020-12-29] MEDS: NOREPINEPHRINE 8 MG in SODIUM CHLORIDE 0.9% 242 ML IV PRN ×3 (03:23→21:30)
[2020-12-29 05:01] LABS: MEAN CORPUSCULAR HEMOGLOBIN 28.5 pg (27.0-34.8); MEAN CORPUSCULAR HGB CONC 33.5 g/dL (32.4-35.8); MEAN PLATELET VOLUME 8.3 fL (7.4-10.4); PLATELET COUNT 291 x10^3/uL (130-400); RED BLOOD COUNT 5.29 x10^6/uL (3.82-5.3); RED CELL DISTRIBUTION WIDTH 15.1 % (9.6-15.2)
[2020-12-29 05:16] LABS: CHLORIDE 101 mmol/L (98-107)
[2020-12-29 05:23] LABS: ALANINE AMINOTRANSFERASE 34 U/L (12-78); ALBUMIN 2.2 g/dL (3.4-5.0); ALKALINE PHOSPHATASE 105 U/L (45-117); ANION GAP 14 mmol/L (5-15); BILIRUBIN,TOTAL 1.1 mg/dL (0.2-1.0); CALCIUM 9.2 mg/dL (8.5-10.1); CREATININE 1.59 mg/dL (0.55-1.02); TOTAL PROTEIN 6.8 g/dL (6.4-8.2)
[2020-12-29 06:05] LABS: <RBC MORPHOLOGY> NORMAL; LYMPH#(MANUAL) 1.18 x10^3/uL (1-3.4); LYMPHS% (MANUAL) 5 % (22-44); MONOS#(MANUAL) 1.18 x10^3/uL (0.3-2.7); MONOS% (MANUAL) 5 % (2-9); SEG#(MANUAL) 21.24 x10^3/uL (1.8-6.8); SEGS% (MANUAL) 90 % (42-75)
[2020-12-29 06:06] LABS: <PLATELET ESTIMATE> ADEQUATE; <PLT MORPHOLOGY> NORMAL PLT MORPH
[2020-12-29] MEDS: ASCORBIC ACID 500 MG TABLET PO SCH ×2 (08:00→17:00)
[2020-12-29] MEDS: GUAIFENESIN ER 600 MG TABLET PO SCH ×2 (09:00→21:00)
[2020-12-29] MEDS: FLUTICASONE/VILANTEROL 100-25MCG/INH INH SCH (09:00)
[2020-12-29] MEDS: CHOLECALCIFEROL 5,000u TAB PO SCH (09:00)
[2020-12-29] MEDS: DEXAMETHASONE 4 MG/ML, 1ML IVPush SCH (09:27)
[2020-12-29] MEDS: SODIUM CHLORIDE FLUSH 10ML SYR IVF SCH ×2 (09:28→21:00)
[2020-12-29] MEDS: FENTANYL PF 1,000 MCG in SODIUM CHLORIDE 0.9% 80 ML IV PRN ×2 (10:17→21:42)
[2020-12-29] MEDS: ZINC SULFATE 220 MG CAPSULE PO SCH (10:30)
[2020-12-29] MEDS: MIDAZOLAM HCL 50 MG in SODIUM CHLORIDE 0.9% 40 ML IV PRN ×2 (13:52→23:40)
[2020-12-29] MEDS ORDERED: VANCOMYCIN PER PHARMACY MC PRN (15:30)
[2020-12-29] MEDS ORDERED: PHARMACOKINETIC MONITORING MC PRN (16:00)
[2020-12-29] MEDS: CEFEPIME 2 GM in DEXTROSE 5% 100 ML IV SCH (16:50)
[2020-12-29] MEDS ORDERED: VANCOMYCIN 1,400 MG in SODIUM CHLORIDE 0.9% 250 ML IV SCH (17:00)
[2020-12-29] MEDS: VECURONIUM 10 MG IVPush ONE ×2 (18:00→18:22)
[2020-12-29 18:56] LABS: ALANINE AMINOTRANSFERASE 31 U/L (12-78); ALBUMIN 2.1 g/dL (3.4-5.0); ANION GAP 12 mmol/L (5-15); CALCIUM 8.8 mg/dL (8.5-10.1); CHLORIDE 102 mmol/L (98-107); CREATININE 1.89 mg/dL (0.55-1.02)
[2020-12-29 18:59] LABS: ALKALINE PHOSPHATASE 101 U/L (45-117); BILIRUBIN,TOTAL 0.9 mg/dL (0.2-1.0); TOTAL PROTEIN 6.6 g/dL (6.4-8.2)
[2020-12-29 19:49] LABS: MICROSCOPIC INDICATED
[2020-12-30] MEDS: PROPOFOL 100 ML IV PRN ×4 (02:17→19:23)
[2020-12-30] MEDS: NOREPINEPHRINE 8 MG in SODIUM CHLORIDE 0.9% 242 ML IV PRN (02:48)
[2020-12-30] MEDS: VASOPRESSIN 20 UNIT in SODIUM CHLORIDE 0.9% 99 ML IV PRN ×3 (03:16→19:23)
[2020-12-30] MEDS: CEFEPIME 2 GM in DEXTROSE 5% 100 ML IV SCH ×2 (04:11→17:32)
[2020-12-30 05:15] LABS: MEAN CORPUSCULAR HEMOGLOBIN 28.3 pg (27.0-34.8); MEAN CORPUSCULAR HGB CONC 32.8 g/dL (32.4-35.8); MEAN PLATELET VOLUME 8.6 fL (7.4-10.4); PLATELET COUNT 246 x10^3/uL (130-400); RED BLOOD COUNT 5.26 x10^6/uL (3.82-5.3); RED CELL DISTRIBUTION WIDTH 15.1 % (9.6-15.2)
[2020-12-30 05:19] LABS: ANION GAP 12 mmol/L (5-15); CALCIUM 8.5 mg/dL (8.5-10.1); CHLORIDE 103 mmol/L (98-107); CREATININE 2.32 mg/dL (0.55-1.02)
[2020-12-30 06:01] LABS: <RBC MORPHOLOGY> NORMAL; LYMPH#(MANUAL) 0.29 x10^3/uL (1-3.4); LYMPHS% (MANUAL) 1 % (22-44); SEG#(MANUAL) 28.91 x10^3/uL (1.8-6.8); SEGS% (MANUAL) 99 % (42-75)
[2020-12-30 06:02] LABS: <PLATELET ESTIMATE> ADEQUATE; <PLT MORPHOLOGY> NORMAL PLT MORPH; PMNS WITH VACUOLES 1+
[2020-12-30] MEDS ORDERED: LINEZOLID 20MG/ML ORAL SUSP PO SCH (06:30)
[2020-12-30] MEDS: ASCORBIC ACID 500 MG TABLET PO SCH ×2 (08:00→17:00)
[2020-12-30] MEDS: DEXAMETHASONE 4 MG/ML, 1ML IVPush SCH (08:38)
[2020-12-30] MEDS: SODIUM CHLORIDE FLUSH 10ML SYR IVF SCH ×2 (09:00→20:47)
[2020-12-30] MEDS: GUAIFENESIN ER 600 MG TABLET PO SCH ×2 (09:00→20:47)
[2020-12-30] MEDS: FLUTICASONE/VILANTEROL 100-25MCG/INH INH SCH (09:00)
[2020-12-30] MEDS: CHOLECALCIFEROL 5,000u TAB PO SCH (09:00)
[2020-12-30] MEDS: ZINC SULFATE 220 MG CAPSULE PO SCH (09:06)
[2020-12-30] MEDS: MIDAZOLAM HCL 50 MG in SODIUM CHLORIDE 0.9% 40 ML IV PRN (09:53)
[2020-12-30] MEDS: LINEZOLID PMX 600MG/300ML 300 ML IV SCH ×2 (09:53→20:47)
[2020-12-30] MEDS: FENTANYL PF 1,000 MCG in SODIUM CHLORIDE 0.9% 80 ML IV PRN ×2 (09:54→22:12)
[2020-12-30] MEDS ORDERED: TPN PER PHARMACY MC PRN (10:30)
[2020-12-30] MEDS ORDERED: SODIUM CHLORIDE 0.9% 1,000ML IVBOLUS ONE (10:30)
[2020-12-30] MEDS ORDERED: SODIUM CHLORIDE 0.9% 1,000 ML IV SCH (16:00)
[2020-12-30] MEDS ORDERED: STERILE WATER IV SCH (17:00)
[2020-12-30] MEDS ORDERED: AMINO ACID 10% IV SCH (17:00)
[2020-12-30] MEDS ORDERED: [UNRECOGNIZED DRUG - OTHER] IV SCH (17:00)
[2020-12-30] MEDS ORDERED: DEXTROSE 70% IV SCH (17:00)
[2020-12-30] MEDS ORDERED: DEXTROSE 10% 500 ML IV PRN (17:00)
[2020-12-30] MEDS ORDERED: FILTER, DISP 1.2 MICRON FOR TPN/PVN IV PRN (17:00)
[2020-12-30] MEDS ORDERED: DEXTROSE 50%, 50ML SYRINGE IVPush PRN (17:00)
[2020-12-30] MEDS ORDERED: NOREPINEPHRINE 32 MG in SODIUM CHLORIDE 0.9% 218 ML IV PRN (21:30)
[2020-12-30] MEDS ORDERED: FILTER 0.22 MICRON IV PRN (23:30)
[2020-12-30] MEDS ORDERED: AMIODARONE 150 MG in DEXTROSE 5% 100 ML IV ONE (23:30)
[2020-12-30] MEDS: AMIODARONE 450 MG in DEXTROSE 5% 241 ML IV PRN (23:38)
[2020-12-30] MEDS: INSULIN REGULAR HIGH DOSE Q6H X 48HRS SQ-INSULIN SCH (23:39)
[2020-12-31] MEDS: PROPOFOL 100 ML IV PRN (01:08)
[2020-12-31] MEDS: MIDAZOLAM HCL 50 MG in SODIUM CHLORIDE 0.9% 40 ML IV PRN (04:08)
[2020-12-31] MEDS: VASOPRESSIN 20 UNIT in SODIUM CHLORIDE 0.9% 99 ML IV PRN (04:08)
[2020-12-31] MEDS: CEFEPIME 2 GM in DEXTROSE 5% 100 ML IV SCH (04:09)
[2020-12-31] MEDS ORDERED: SODIUM BICARB 8.4%, 50ML SYRINGE ONE (05:07)
[2020-12-31] MEDS: AMIODARONE 450 MG in DEXTROSE 5% 241 ML IV PRN (05:14)
[2020-12-31] MEDS ORDERED: SODIUM BICARB 8.4%, 50ML SYRINGE IVPush ONE (05:30)
[2020-12-31] MEDS ORDERED: SODIUM BICARBONATE 8.4% 100 MEQ in DEXTROSE 5% 1,000 ML IV SCH (05:30)
[2020-12-31] MEDS: INSULIN REGULAR HIGH DOSE Q6H X 48HRS SQ-INSULIN SCH (05:45)
[2020-12-31] MEDS: ASCORBIC ACID 500 MG TABLET PO SCH (08:00)
[2020-12-31] MEDS: DEXAMETHASONE 4 MG/ML, 1ML IVPush SCH (08:54)
[2020-12-31] MEDS: FLUTICASONE/VILANTEROL 100-25MCG/INH INH SCH (09:00)
[2020-12-31] MEDS: GUAIFENESIN ER 600 MG TABLET PO SCH (09:00)
[2020-12-31] MEDS: CHOLECALCIFEROL 5,000u TAB PO SCH (09:00)
[2020-12-31] MEDS: ZINC SULFATE 220 MG CAPSULE PO SCH (10:02)
[2020-12-31 10:16] LABS: MEAN CORPUSCULAR HEMOGLOBIN 28.4 pg (27.0-34.8); MEAN CORPUSCULAR HGB CONC 31.4 g/dL (32.4-35.8); MEAN PLATELET VOLUME 10.2 fL (7.4-10.4); PLATELET COUNT 101 x10^3/uL (130-400); RED BLOOD COUNT 4.43 x10^6/uL (3.82-5.3); RED CELL DISTRIBUTION WIDTH 15.7 % (9.6-15.2)
[2020-12-31] MEDS ORDERED: MORPHINE SULFATE 4 MG/ML, 1ML ONE (10:17)
[2020-12-31] MEDS ORDERED: LORazepam 2 MG/ML, 1ML ONE (10:17)
[2020-12-31] MEDS ORDERED: morphine SULFATE 10 MG/ML, 1ML ONE (10:22)
[2020-12-31 10:25] LABS: ALANINE AMINOTRANSFERASE 387 U/L (12-78); ANION GAP 17 mmol/L (5-15); CHLORIDE 101 mmol/L (98-107); CREATININE 3.97 mg/dL (0.55-1.02)
[2020-12-31] MEDS ORDERED: LORazepam 2 MG/ML, 1ML IVPush PRN (10:30)
[2020-12-31] MEDS ORDERED: ATROPINE OPHTH SOLN 1%, 5ML PO PRN (10:30)
[2020-12-31] MEDS ORDERED: ONDANSETRON 2MG/ML, 2ML IVPush PRN (10:30)
[2020-12-31] MEDS ORDERED: MORPHINE SULFATE 4 MG/ML, 1ML IVPush PRN (10:30)
[2020-12-31] MEDS ORDERED: MORPHINE SULFATE 4 MG/ML, 1ML IV ONE (10:30)
[2020-12-31] MEDS ORDERED: LORazepam 2 MG/ML, 1ML IV ONE (10:30)
[2020-12-31 10:42] LABS: ALKALINE PHOSPHATASE 83 U/L (45-117); PREALBUMIN 6.1 mg/dL (20.0-40.0); TOTAL PROTEIN 4.1 g/dL (6.4-8.2); TRIGLYCERIDES 171 mg/dL (50-200)
[2020-12-31 10:46] LABS: <PLATELET ESTIMATE> DECREASED; ANISOCYTOSIS 1+; BAND#(MANUAL) 1.32 x10^3/uL; BANDS%(MANUAL) 5 % (0-7); LARGE PLATELETS 1+; MONOS#(MANUAL) 0.79 x10^3/uL (0.3-2.7); MONOS% (MANUAL) 3 % (2-9); PMNS WITH VACUOLES 1+; SEG#(MANUAL) 24.29 x10^3/uL (1.8-6.8); SEGS% (MANUAL) 92 % (42-75)
[2020-12-31] MEDS ORDERED: PANTOPRAZOLE 40 MG IV IVPush SCH (12:23)
[2021-01-02] MEDS ORDERED: INSULIN REGULAR HIGH DOSE QDAY SQ-INSULIN SCH (05:00)
== END 2020-12-31 10:40 | DRG 208 ==
LOC: ED 16:54 → EDIP 20:01 → 5SO 21:47 → CCU 12-28 14:00
PROVIDERS: ADMIT Internal Medicine; ATTEND Internal Medicine
PROC: XW033E5 Introduction of Remdesivir Anti-infective into Peripheral Vein, Percutaneous Approach, New Technology Group 5 (ICD-10-PCS; 2020-12-21)
PROC: 5A1945Z Respiratory Ventilation, 24-96 Consecutive Hours (ICD-10-PCS; principal; 2020-12-28)
PROC: 0BH17EZ Insertion of Endotracheal Airway into Trachea, Via Natural or Artificial Opening (ICD-10-PCS; 2020-12-28)
PROC: 0T9B70Z Drainage of Bladder with Drainage Device, Via Natural or Artificial Opening (ICD-10-PCS; 2020-12-28)
PROC: 05HY33Z Insertion of Infusion Device into Upper Vein, Percutaneous Approach (ICD-10-PCS; 2020-12-28)
PROC: B547ZZA Ultrasonography of Left Subclavian Vein, Guidance (ICD-10-PCS; 2020-12-28)
DX: U07.1 COVID-19 (principal); A41.89 Other specified sepsis; J12.82 Pneumonia due to coronavirus disease 2019; I50.33 Acute on chronic diastolic (congestive) heart failure; E43 Unspecified severe protein-calorie malnutrition; G93.41 Metabolic encephalopathy; J96.01 Acute respiratory failure with hypoxia; N39.0 Urinary tract infection, site not specified; J44.0 Chronic obstructive pulmonary disease with (acute) lower respiratory infection; E87.1 Hypo-osmolality and hyponatremia; N17.9 Acute kidney failure, unspecified; R57.9 Shock, unspecified; I35.0 Nonrheumatic aortic (valve) stenosis; I71.2 Thoracic aortic aneurysm, without rupture; I48.0 Paroxysmal atrial fibrillation; E78.5 Hyperlipidemia, unspecified; G47.33 Obstructive sleep apnea (adult) (pediatric); I25.10 Atherosclerotic heart disease of native coronary artery without angina pectoris; I49.5 Sick sinus syndrome; I83.90 Asymptomatic varicose veins of unspecified lower extremity; K40.90 Unilateral inguinal hernia, without obstruction or gangrene, not specified as recurrent; K43.9 Ventral hernia without obstruction or gangrene; K44.9 Diaphragmatic hernia without obstruction or gangrene; K57.10 Diverticulosis of small intestine without perforation or abscess without bleeding; K83.8 Other specified diseases of biliary tract; M81.0 Age-related osteoporosis without current pathological fracture; Z96.653 Presence of artificial knee joint, bilateral; E66.01 Morbid (severe) obesity due to excess calories; K21.9 Gastro-esophageal reflux disease without esophagitis; E87.8 Other disorders of electrolyte and fluid balance, not elsewhere classified; J98.2 Interstitial emphysema; Z79.01 Long term (current) use of anticoagulants; Z68.32 Body mass index [BMI] 32.0-32.9, adult; Z82.49 Family history of ischemic heart disease and other diseases of the circulatory system; Z90.49 Acquired absence of other specified parts of digestive tract; Z95.0 Presence of cardiac pacemaker; Z95.1 Presence of aortocoronary bypass graft; Z95.3 Presence of xenogenic heart valve; Z88.5 Allergy status to narcotic agent
CPT/HCPCS: 36415; 36573; 36600; 71045; 74181; 76700; 80048; 80053; 81001; 82728; 82803; 82962; 83615; 83735; 83880; 84100; 84134; 84145; 84478; 84484; 85025; 85379; 85384; 85651; 86140; 87040; 87070; 87081; 87086; 87106; 87205; 87324; 87400; 87486; 87581; 87633; 87798; 93005; 93306; 93931; 94002; 94003; 96374; 96375; G0378; J0610; J0696; J1100; J1650; J1815; J1940; J2020; J2250; J2405; J2704; J3010; J3360; J3370; J7060; J7070; J7120; U0005; C1751; J0282; J2060; J2270; J3420; J3475; J7030; J7050; U0003